=== PATIENT | male | born 1990 | race Two or more races ===

== ENCOUNTER 2020-05-01 18:36 | Emergency (ER) | payer OTHER, SELFPAY ==
--- NOTE | ~2020-05-01 | US_ITS ---
EXAMINATION: US VENOUS ULTRASOUND WITH DOPPLER LOWER EXTREMITY, BILATERAL CLINICAL INFORMATION: Swelling and pain COMPARISON: None TECHNIQUE: Ultrasound of the deep veins is performed from the hip to the calf with compression sonography and color and pulse Doppler assessment. Spectral analysis with color-flow imaging is performed. FINDINGS: RIGHT: There is normal venous compression and respiratory variation and augmented flow. The visualized common femoral vein, superficial femoral vein, profunda femoral vein, popliteal vein, and the trifurcation region shows no evidence of deep venous thrombosis. There is no significant popliteal fossa cyst. Mildly prominent inguinal lymph nodes are present. Normal morphology. LEFT: There is normal venous compression and respiratory variation and augmented flow. The visualized common femoral vein, superficial femoral vein, profunda femoral vein, popliteal vein, and the trifurcation region shows no evidence of deep venous thrombosis. There is no significant popliteal fossa cyst. Mildly prominent inguinal lymph nodes are present. Normal morphology. If the patient's symptoms persist, followup ultrasound in 5 days 7 days might be of value to exclude proximal propagation from a non-visualized calf vein. US/US venous duplex LE BI IMPRESSION: No DVT demonstrated in the bilateral lower extremities. Prominent bilateral inguinal lymph nodes.
--- NOTE | ~2020-05-01 | XR_ITS ---
EXAMINATION: XR CHEST CLINICAL INFORMATION: Bilateral lower extremity swelling COMPARISON: None TECHNIQUE: Frontal view of the chest was obtained. FINDINGS: The lungs are well expanded. There is no focal consolidation, edema, or effusion. No pneumothorax. The cardiomediastinal silhouette is within normal limits. No acute osseous abnormality. XR/XR chest 1V IMPRESSION: Clear lungs.
[2020-05-01 20:24] VITALS: BP 101/50; PULSE 62; RESP 16; TEMP 36.8; O2SAT 98; BMI 30.3
--- NOTE | 2020-05-01 23:09 | ECG_ITS ---
Test Reason : ble swelling Blood Pressure : / mmHG Vent. Rate : 057 BPM Atrial Rate : 057 BPM P-R Int : 160 ms QRS Dur : 082 ms QT Int : 436 ms P-R-T Axes : 014 049 050 degrees QTc Int : 424 ms Sinus bradycardia Nonspecific ST and T wave abnormality Abnormal ECG No previous ECGs available Referred By: Soila Conner Electronically Signed By:SHANELLE ENRIQUEZ MD
--- NOTE | 2020-05-01 23:14 | ED_ITS ---
HPI - General Adult General Chief complaint: Extremity Injury, Lower Stated complaint: leg pain Time Seen by Provider: 05/01/20 23:05 Source: patient Mode of arrival: ambulatory Limitations: no limitations History of Present Illness HPI narrative: 29-year-old male with no significant past medical history, however has not had medical care in approximately 15 years presents with bilateral lower extremity swelling. States that the swelling has been present for the past 2 years, over the past few weeks the pain and swelling has increased, is exacerbated by movement, standing for long periods of time, and cold weather. Does not report any fevers, chills, chest pain or pressure, palpitations, shortness of breath, shortness of breath on exertion, abdominal pain, abdominal distention, dysuria, hematuria, polyuria, polydipsia, polyphasia, changes in vision, or any other concerning symptoms. Onset (ago): year(s) (2) Location: left, right and lower extremity Severity: moderate Severity scale (1-10): 7 Quality: burning and constant Pain Consistency: constant Relieving factors: rest and other (Elevation) Exacerbating factors: movement and other (Standing, cold weather) Associated symptoms: denies other symptoms Treatments prior to arrival: none Related Data Allergies Allergy/AdvReac Type Severity Reaction Status Date / Time No Known Allergies Allergy Verified 05/01/20 20:37 Review of Systems Review of Systems: Constitutional: No Fever, No Chills ENT/Mouth: No Ear Pain, No Hoarseness, No sore throat Eyes: No Eye Pain, No Swelling, No Redness, No Foreign Body Cardiovascular: No Chest Pain, No SOB Respiratory: No Cough, No Dyspnea Gastrointestinal: No Nausea, No Vomiting, No Diarrhea, No abdominal Pain Genitourinary: No Dysuria, No Hematuria Musculoskeletal: positive bilateral lower extremity pain, No Myalgias, No Joint Swelling Skin: Multiple picking wounds lower extremities, No rash Neuro: No Weakness, No Numbness, No Paresthesias, No Loss of Consciousness, No Dizziness, No Headache Psych: No Anxiety/Panic, No Depression Heme/Lymph: no easy bruising, positive bilateral lower extremity edema, no lymphadenopathy Endocrine: No Polyuria, No Polydipsia Yes all other systems are reviewed and are negative [facility] Past Medical History Attestation statement: The following information was validated with the patient. Source: old records reviewed Medical History No known health problems Social History Social History Advance Directives: No Advance Directives Information Provided: No Physical Exam Vital Signs: Vital Signs: Last Vital Signs Temp 98.2 F 05/02/20 00:00 Pulse 61 05/02/20 00:00 Resp 16 05/02/20 00:00 BP 126/73 05/02/20 00:00 Pulse Ox 97 05/02/20 00:00 Body Mass Index 30.3 Appearance: Alert. Oriented X3. No acute distress. Eyes: Pupils equal, round and reactive to light. ENT: Pharynx normal. Neck: Normal inspection. Neck supple. CVS: Normal heart rate and rhythm. Pulses normal. Respiratory: No respiratory distress. Breath sounds normal. Abdomen: Soft and nontender. Skin: Skin warm and dry. Normal skin color. Normal skin turgor. Extremities: Bilateral lower extremity edema, dry skin, multiple picking wounds, no wounds between the toes, no indication of cellulitis or infection. Neuro: No motor deficit. No sensory deficit. Course Course Course Narrative: 29-year-old male presents with 2 years of lower extremity swelling, presents because pain in his lower extremities have increased over the past couple of weeks. He smells like marijuana, and I suspect drug use however he denies IVDA. Based on his poor medical follow through we will order CBC, Chem 7, BNP, tox screen, and COVID test. Lab values are unremarkable with the exception of elevated glucose at 130, positive opioid and marijuana tox screen. Chest x-ray is negative, EKG normal sinus, troponins are negative. Low suspicion for ACS and heart failure at this time. Duplex negative for DVT, shows bilateral lymphadenopathy. Detailed description regarding new onset of diabetes, and lymphadenopathy that patient must follow up with primary care. Patient verbalizes understanding of and agrees to plan care discharge home. Medical Decision Making Differential Diagnosis Differential Diagnosis: DVT, lymphadenopathy, cellulitis, edema, CHF, substance abuse Medical Records Medical records reviewed: Yes I reviewed the patient's medical records. Lab Data Lab results reviewed: Yes I reviewed the patient's lab results. Result diagrams: 05/01/20 23:48 05/01/20 23:47 Labs: Lab Results 05/01/20 05/01/20 05/01/20 Range/Units 23:44 23:47 23:47 WBC (4.8-10.8) X10*3/uL RBC (4.60-5.80) X10*6/uL Hgb (14.0-18.0) g/dl Hct (42-52) % MCV (80-98) fL MCH (27.0-33.0) pg MCHC (31.0-36.0) g/dl RDW (11.0-16.0) % Plt Count (160-400) X10*3/uL MPV (9.4-12.4) fL Immature Gran % (Auto) (0.0-0.4) % Neut % (Auto) (45-73) % Lymph % (Auto) (20-40) % [place] % (Auto) (2-11) % Eos % (Auto) (0-4) % Baso % (Auto) (0-2) % Lymph # (Auto) (1.2-4.9) X10*3/uL [place] # (Auto) (0.1-1.2) X10*3/uL Eos # (Auto) (0.0-0.4) X10*3/uL Baso # (Auto) (0.0-0.2) X10*3/uL Abs Immat Gran (auto) (0.00-0.03) X10*3/uL Absolute Neuts (auto) (2.0-8.3) X10*3/uL Absolute Nucleated RBC (0.0-0.012) X10*3/uL Nucleated RBC % (auto) (0.0-0.2) /100WBC PT (10.8-13.0) SEC INR (0.9-1.1) APTT (24.1-38.0) SEC Sodium 141 (135-145) mmol/L Potassium 3.9 (3.3-5.1) mmol/L Chloride 102 (96-108) mmol/L Carbon Dioxide 31 H (22-29) mmol/L Anion Gap 12 (12-20) BUN 17 H (9-16) mg/dL Creatinine 1.03 (0.5-1.4) mg/dL Estim Creat Clear Calc 131.7 Estimated GFR > 60 POC Glucose 129 H (60-115) mg/dL Random Glucose 115 (60-115) mg/dL Lactic Acid 1.1 (0.5-2.0) mmol/L Calcium 9.1 (8.4-10.2) mg/dL Magnesium 2.3 (1.6-2.6) mg/dL Total Bilirubin 0.3 (0.0-1.0) mg/dL Direct Bilirubin < 0.2 (0.0-0.5) mg/dL AST 19 (5-37) U/L ALT 21 (0-40) U/L Alkaline Phosphatase 87 (39-117) U/L Troponin I High Sens (<3.5-35.0) ng/L B-Natriuretic Peptide (<100) pg/mL Total Protein 8.0 (6.5-8.0) g/dL Albumin 4.5 (3.5-5.0) g/dL Lipase 96 H (8-78) U/L Urine Color Urine Appearance Urine pH (5.0-8.0) Ur Specific [place] (1.005-1.025) Urine Protein (NEG-TRACE) MG/DL Urine Glucose (UA) (NEG) MG/DL Urine Ketones (NEG) MG/DL Urine Blood (NEG) Urine Nitrite (NEG) Ur Leukocyte Esterase (NEG) Urine Opiates Screen (Not Detect) Ur Barbiturates Screen (Not Detect) Ur Phencyclidine Scrn (Not Detect) Ur Amphetamines Screen (Not Detect) U Benzodiazepines Scrn (Not Detect) Urine Cocaine Screen (Not Detect) U Marijuana (THC) Screen (Not Detect) Coronavirus (PCR) (Negative) Influenza Type A (PCR) (Negative) Influenza Type B (PCR) (Negative) RSV RNA Qual (PCR) (Negative) 05/01/20 05/01/20 05/01/20 Range/Units 23:47 23:47 23:47 WBC (4.8-10.8) X10*3/uL RBC (4.60-5.80) X10*6/uL Hgb (14.0-18.0) g/dl Hct (42-52) % MCV (80-98) fL MCH (27.0-33.0) pg MCHC (31.0-36.0) g/dl RDW (11.0-16.0) % Plt Count (160-400) X10*3/uL MPV (9.4-12.4) fL Immature Gran % (Auto) (0.0-0.4) % Neut % (Auto) (45-73) % Lymph % (Auto) (20-40) % [place] % (Auto) (2-11) % Eos % (Auto) (0-4) % Baso % (Auto) (0-2) % Lymph # (Auto) (1.2-4.9) X10*3/uL [place] # (Auto) (0.1-1.2) X10*3/uL Eos # (Auto) (0.0-0.4) X10*3/uL Baso # (Auto) (0.0-0.2) X10*3/uL Abs Immat Gran (auto) (0.00-0.03) X10*3/uL Absolute Neuts (auto) (2.0-8.3) X10*3/uL Absolute Nucleated RBC (0.0-0.012) X10*3/uL Nucleated RBC % (auto) (0.0-0.2) /100WBC PT (10.8-13.0) SEC INR (0.9-1.1) APTT (24.1-38.0) SEC Sodium (135-145) mmol/L Potassium (3.3-5.1) mmol/L Chloride (96-108) mmol/L Carbon Dioxide (22-29) mmol/L Anion Gap (12-20) BUN (9-16) mg/dL Creatinine (0.5-1.4) mg/dL Estim Creat Clear Calc Estimated GFR POC Glucose (60-115) mg/dL Random Glucose (60-115) mg/dL Lactic Acid (0.5-2.0) mmol/L Calcium (8.4-10.2) mg/dL Magnesium (1.6-2.6) mg/dL Total Bilirubin (0.0-1.0) mg/dL Direct Bilirubin (0.0-0.5) mg/dL AST (5-37) U/L ALT (0-40) U/L Alkaline Phosphatase (39-117) U/L Troponin I High Sens < 3.5 (<3.5-35.0) ng/L B-Natriuretic Peptide 16 (<100) pg/mL Total Protein (6.5-8.0) g/dL Albumin (3.5-5.0) g/dL Lipase (8-78) U/L Urine Color Urine Appearance Urine pH (5.0-8.0) Ur Specific [place] (1.005-1.025) Urine Protein (NEG-TRACE) MG/DL Urine Glucose (UA) (NEG) MG/DL Urine Ketones (NEG) MG/DL Urine Blood (NEG) Urine Nitrite (NEG) Ur Leukocyte Esterase (NEG) Urine Opiates Screen (Not Detect) Ur Barbiturates Screen (Not Detect) Ur Phencyclidine Scrn (Not Detect) Ur Amphetamines Screen (Not Detect) U Benzodiazepines Scrn (Not Detect) Urine Cocaine Screen (Not Detect) U Marijuana (THC) Screen (Not Detect) Coronavirus (PCR) NEGATIVE (Negative) Influenza Type A (PCR) NEGATIVE (Negative) Influenza Type B (PCR) NEGATIVE (Negative) RSV RNA Qual (PCR) NEGATIVE (Negative) 05/01/20 05/01/20 05/02/20 Range/Units 23:48 23:48 00:28 WBC 8.7 (4.8-10.8) X10*3/uL RBC 4.43 L (4.60-5.80) X10*6/uL Hgb 13.7 L (14.0-18.0) g/dl Hct 42.3 (42-52) % MCV 95.5 (80-98) fL MCH 30.9 (27.0-33.0) pg MCHC 32.4 (31.0-36.0) g/dl RDW 13.0 (11.0-16.0) % Plt Count 250 (160-400) X10*3/uL MPV 9.3 L (9.4-12.4) fL Immature Gran % (Auto) 0.2 (0.0-0.4) % Neut % (Auto) 46.3 (45-73) % Lymph % (Auto) 44.3 H (20-40) % [place] % (Auto) 7.3 (2-11) % Eos % (Auto) 1.7 (0-4) % Baso % (Auto) 0.2 (0-2) % Lymph # (Auto) 3.9 (1.2-4.9) X10*3/uL [place] # (Auto) 0.6 (0.1-1.2) X10*3/uL Eos # (Auto) 0.2 (0.0-0.4) X10*3/uL Baso # (Auto) 0.0 (0.0-0.2) X10*3/uL Abs Immat Gran (auto) 0.02 (0.00-0.03) X10*3/uL Absolute Neuts (auto) 4.0 (2.0-8.3) X10*3/uL Absolute Nucleated RBC 0.000 (0.0-0.012) X10*3/uL Nucleated RBC % (auto) 0.0 (0.0-0.2) /100WBC PT 11.9 (10.8-13.0) SEC INR 1.0 (0.9-1.1) APTT 45.1 H (24.1-38.0) SEC Sodium (135-145) mmol/L Potassium (3.3-5.1) mmol/L Chloride (96-108) mmol/L Carbon Dioxide (22-29) mmol/L Anion Gap (12-20) BUN (9-16) mg/dL Creatinine (0.5-1.4) mg/dL Estim Creat Clear Calc Estimated GFR POC Glucose (60-115) mg/dL Random Glucose (60-115) mg/dL Lactic Acid (0.5-2.0) mmol/L Calcium (8.4-10.2) mg/dL Magnesium (1.6-2.6) mg/dL Total Bilirubin (0.0-1.0) mg/dL Direct Bilirubin (0.0-0.5) mg/dL AST (5-37) U/L ALT (0-40) U/L Alkaline Phosphatase (39-117) U/L Troponin I High Sens (<3.5-35.0) ng/L B-Natriuretic Peptide (<100) pg/mL Total Protein (6.5-8.0) g/dL Albumin (3.5-5.0) g/dL Lipase (8-78) U/L Urine Color YELLOW Urine Appearance CLEAR Urine pH 6.0 (5.0-8.0) Ur Specific [place] >= 1.030 H (1.005-1.025) Urine Protein NEG (NEG-TRACE) MG/DL Urine Glucose (UA) NEG (NEG) MG/DL Urine Ketones NEG (NEG) MG/DL Urine Blood NEG (NEG) Urine Nitrite NEG (NEG) Ur Leukocyte Esterase NEG (NEG) Urine Opiates Screen (Not Detect) Ur Barbiturates Screen (Not Detect) Ur Phencyclidine Scrn (Not Detect) Ur Amphetamines Screen (Not Detect) U Benzodiazepines Scrn (Not Detect) Urine Cocaine Screen (Not Detect) U Marijuana (THC) Screen (Not Detect) Coronavirus (PCR) (Negative) Influenza Type A (PCR) (Negative) Influenza Type B (PCR) (Negative) RSV RNA Qual (PCR) (Negative) 05/02/20 Range/Units 00:28 WBC (4.8-10.8) X10*3/uL RBC (4.60-5.80) X10*6/uL Hgb (14.0-18.0) g/dl Hct (42-52) % MCV (80-98) fL MCH (27.0-33.0) pg MCHC (31.0-36.0) g/dl RDW (11.0-16.0) % Plt Count (160-400) X10*3/uL MPV (9.4-12.4) fL Immature Gran % (Auto) (0.0-0.4) % Neut % (Auto) (45-73) % Lymph % (Auto) (20-40) % [place] % (Auto) (2-11) % Eos % (Auto) (0-4) % Baso % (Auto) (0-2) % Lymph # (Auto) (1.2-4.9) X10*3/uL [place] # (Auto) (0.1-1.2) X10*3/uL Eos # (Auto) (0.0-0.4) X10*3/uL Baso # (Auto) (0.0-0.2) X10*3/uL Abs Immat Gran (auto) (0.00-0.03) X10*3/uL Absolute Neuts (auto) (2.0-8.3) X10*3/uL Absolute Nucleated RBC (0.0-0.012) X10*3/uL Nucleated RBC % (auto) (0.0-0.2) /100WBC PT (10.8-13.0) SEC INR (0.9-1.1) APTT (24.1-38.0) SEC Sodium (135-145) mmol/L Potassium (3.3-5.1) mmol/L Chloride (96-108) mmol/L Carbon Dioxide (22-29) mmol/L Anion Gap (12-20) BUN (9-16) mg/dL Creatinine (0.5-1.4) mg/dL Estim Creat Clear Calc Estimated GFR POC Glucose (60-115) mg/dL Random Glucose (60-115) mg/dL Lactic Acid (0.5-2.0) mmol/L Calcium (8.4-10.2) mg/dL Magnesium (1.6-2.6) mg/dL Total Bilirubin (0.0-1.0) mg/dL Direct Bilirubin (0.0-0.5) mg/dL AST (5-37) U/L ALT (0-40) U/L Alkaline Phosphatase (39-117) U/L Troponin I High Sens (<3.5-35.0) ng/L B-Natriuretic Peptide (<100) pg/mL Total Protein (6.5-8.0) g/dL Albumin (3.5-5.0) g/dL Lipase (8-78) U/L Urine Color Urine Appearance Urine pH (5.0-8.0) Ur Specific [place] (1.005-1.025) Urine Protein (NEG-TRACE) MG/DL Urine Glucose (UA) (NEG) MG/DL Urine Ketones (NEG) MG/DL Urine Blood (NEG) Urine Nitrite (NEG) Ur Leukocyte Esterase (NEG) Urine Opiates Screen POSITIVE H (Not Detect) Ur Barbiturates Screen Not Detected (Not Detect) Ur Phencyclidine Scrn Not Detected (Not Detect) Ur Amphetamines Screen Not Detected (Not Detect) U Benzodiazepines Scrn Not Detected (Not Detect) Urine Cocaine Screen Not Detected (Not Detect) U Marijuana (THC) Screen POSITIVE H (Not Detect) Coronavirus (PCR) (Negative) Influenza Type A (PCR) (Negative) Influenza Type B (PCR) (Negative) RSV RNA Qual (PCR) (Negative) Imaging Data Bilateral venous duplex: Attestation: I personally reviewed and interpreted this imaging study as follows: Radiologist's impression: EXAMINATION: US VENOUS ULTRASOUND WITH DOPPLER LOWER EXTREMITY, BILATERAL CLINICAL INFORMATION: Swelling and pain COMPARISON: None TECHNIQUE: Ultrasound of the deep veins is performed from the hip to the calf with compression sonography and color and pulse Doppler assessment. Spectral analysis with color-flow imaging is performed. FINDINGS: RIGHT: There is normal venous compression and respiratory variation and augmented flow. The visualized common femoral vein, superficial femoral vein, profunda femoral vein, popliteal vein, and the trifurcation region shows no evidence of deep venous thrombosis. There is no significant popliteal fossa cyst. Mildly prominent inguinal lymph nodes are present. Normal morphology. LEFT: There is normal venous compression and respiratory variation and augmented flow. The visualized common femoral vein, superficial femoral vein, profunda femoral vein, popliteal vein, and the trifurcation region shows no evidence of deep venous thrombosis. There is no significant popliteal fossa cyst. Mildly prominent inguinal lymph nodes are present. Normal morphology. If the patient's symptoms persist, followup ultrasound in 5 days 7 days might be of value to exclude proximal propagation from a non-visualized calf vein. US/US venous duplex LE BI IMPRESSION: No DVT demonstrated in the bilateral lower extremities. Prominent bilateral inguinal lymph nodes. Chest x-ray: Attestation: I personally reviewed and interpreted this imaging study as follows: Radiologist's impression: EXAMINATION: XR CHEST CLINICAL INFORMATION: Bilateral lower extremity swelling COMPARISON: None TECHNIQUE: Frontal view of the chest was obtained. FINDINGS: The lungs are well expanded. There is no focal consolidation, edema, or effusion. No pneumothorax. The cardiomediastinal silhouette is within normal limits. No acute osseous abnormality. XR/XR chest 1V IMPRESSION: Clear lungs. ECG Data Attestation: I personally reviewed and interpreted this ECG as follows: Interpretation: Vent. rate 61 BPM DE interval 180 ms QRS duration 110 ms QT/QTc 426/428 ms P-R-T axes 53 40 42 Normal sinus rhythm Nonspecific T wave abn ormality Abnormal ECG When compared with ECG of 01-MAY-2020 23:31, ST no longer depressed in Anterior leads Discharge Plan Discharge Clinical Impression: Localized swelling of both lower extremities, New onset type 2 diabetes mellitus, Lymphadenopathy Patient Disposition: Home, Self-Care Instructions: Type 2 Diabetes in Adults: New Diagnosis (ED), Diabetic Foot Ulcers (ED), Diabetes and Your Skin (ED), Diabetes and Your Mouth (ED), Diabetes and Exercise (ED), Lymphadenopathy (ED) Additional Instructions: You were evaluated for bilateral lower extremity swelling. Venous duplex is negative for blood clots. Lab values are unremarkable with the exception of your blood sugar. Your blood sugar is 130. Clinical diagnosis of diabetes is any blood sugar over 126. Please follow-up with a primary care physician. Thank you for choosing this emergency department for evaluation. Please foll ow-up with primary care physician as needed. Return to the emergency department for any new, concerning, or worsening symptoms. Interventions: ED Discharge Assessment Last Done: 05/02/20 01:10 Discharge Date/Time: 05/02/20 01:12
--- NOTE | 2020-05-01 23:20 | PC.NURSE ---
CXR at bedside.
--- NOTE | 2020-05-01 23:26 | PC.NURSE ---
landscape technician at bedside for EKG, labs and POC.
[2020-05-01 23:54] LABS: Glucose, Whole Blood 129 mg/dL (60-115)
[2020-05-01 23:56] LABS: MANUAL DIFF FLAG NO
[2020-05-01 23:57] LABS: Basophils Percent Auto 0.2 % (0-2); Eosinophils Absolute Auto 0.2 X10*3/uL (0.0-0.4); Eosinophils Percent Auto 1.7 % (0-4); Hematocrit 42.3 % (42-52); Hemoglobin 13.7 g/dl (14.0-18.0); Imm Gran Abs Auto 0.02 X10*3/uL (0.00-0.03); Imm Gran Pct Auto 0.2 % (0.0-0.4); Lymphocytes Absolute Auto 3.9 X10*3/uL (1.2-4.9); Lymphocytes Percent Auto 44.3 % (20-40); Mean Corpuscular HGB Conc 32.4 g/dl (31.0-36.0); Mean Corpuscular Hemoglobin 30.9 pg (27.0-33.0); Mean Corpuscular Volume 95.5 fL (80-98); Mean Platelet Volume 9.3 fL (9.4-12.4); Monocytes Absolute Auto 0.6 X10*3/uL (0.1-1.2); Monocytes Percent Auto 7.3 % (2-11); Neutrophils Percent Auto 46.3 % (45-73); Platelet Count 250 X10*3/uL (160-400); Red Blood Count 4.43 X10*6/uL (4.60-5.80); White Blood Count 8.7 X10*3/uL (4.8-10.8)
[2020-05-02] VITALS: BP 126/73; PULSE 61; RESP 16; TEMP 36.8; O2SAT 97
[2020-05-02 00:02] LABS: Prothrombin Time 11.9 SEC (10.8-13.0)
[2020-05-02 00:05] LABS: Partial Thromboplastin Time 45.1 SEC (24.1-38.0)
[2020-05-02 00:19] LABS: Lactic Acid 1.1 mmol/L (0.5-2.0)
[2020-05-02 00:27] LABS: B Type Natriuretic Peptide 16 pg/mL (<100)
[2020-05-02 00:28] LABS: Alanine Aminotransferase 21 U/L (0-40); Albumin Level 4.5 g/dL (3.5-5.0); Alkaline Phosphatase 87 U/L (39-117); Anion Gap 12 (12-20); Aspartate Amino Transferase 19 U/L (5-37); Bilirubin Direct < 0.2 mg/dL (0.0-0.5); Bilirubin Total 0.3 mg/dL (0.0-1.0); Blood Urea Nitrogen 17 mg/dL (9-16); Calcium 9.1 mg/dL (8.4-10.2); Carbon Dioxide 31 mmol/L (22-29); Chloride 102 mmol/L (96-108); Creatinine Clr Calc Pharmacy 131.7; Estimated Glomerular Filt Rate > 60; Glucose Random 115 mg/dL (60-115); Magnesium 2.3 mg/dL (1.6-2.6); Potassium 3.9 mmol/L (3.3-5.1); Sodium 141 mmol/L (135-145); Troponin-I High Sensitivity < 3.5 ng/L (<3.5-35.0)
--- NOTE | 2020-05-02 00:31 | PC.NURSE ---
U/S at bedside. Urine obtained and sent.
[2020-05-02 00:33] LABS: Glucose Urine UA NEG (NEG); Leukocyte Esterase Urine NEG (NEG); Nitrite Urine NEG (NEG); Specific Gravity - Urine >= 1.030 (1.005-1.025); Urine Blood NEG (NEG); Urine Ketones NEG (NEG); Urine Protein NEG (NEG-TRACE)
[2020-05-02 00:35] LABS: Appearance Urine CLEAR; Color Urine YELLOW
[2020-05-02 00:41] LABS: Lipase 96 U/L (8-78)
[2020-05-02 00:50] LABS: Influenza A PCR NEGATIVE (Negative); Influenza B PCR NEGATIVE (Negative); Resp Syncy Virus RNA Qual PCR NEGATIVE (Negative); SARS COV2 PCR INHOUSE NEGATIVE (Negative)
[2020-05-02 01:03] LABS: Amphetamine Screen Urine Not Detected (Not Detect); Barbiturates, Urine Not Detected (Not Detect); Benzodiazepines Screen Urine Not Detected (Not Detect); Cannabinoid Screen Urine POSITIVE (Not Detect); Cocaine Screen Urine Not Detected (Not Detect); Opiate Screen Urine POSITIVE (Not Detect); Phencyclidine Screen Urine Not Detected (Not Detect)
== END 2020-05-02 01:12 | disposition home or self-care (01) ==
PROVIDERS: Nurse Practitioner Family; Emergency Provider Internal Medicine
DX: R60.0 Localized edema (principal); R06.02 Shortness of breath; E11.9 Type 2 diabetes mellitus without complications; R59.0 Localized enlarged lymph nodes; Z20.822 Contact with and (suspected) exposure to COVID-19; Z79.899 Other long term (current) drug therapy
CPT/HCPCS: 0241U; 36415; 71045; 80048; 80076; 80307; 81003; 82947; 83605; 83690; 83735; 83880; 84484; 85025; 85610; 85730; 87040; 93005; 93970; 99283; 99284

== ENCOUNTER 2021-02-15 16:45 | Emergency (ER) | payer OTHER, SELFPAY ==
--- NOTE | ~2021-02-15 | XR_ITS ---
EXAMINATION: XR CHEST CLINICAL INFORMATION: Edema COMPARISON: 05/01/2020 TECHNIQUE: 2 views of the chest were obtained. FINDINGS: The lungs are well expanded. There is no focal consolidation, edema, or effusion. No pneumothorax. The cardiomediastinal silhouette is within normal limits. No acute osseous abnormality. XR/XR chest 2V IMPRESSION: Clear lungs.
[2021-02-15 17:32] VITALS: BP 112/56; PULSE 86; RESP 18; TEMP 36.7; O2SAT 98; BMI 24.3
--- NOTE | 2021-02-15 18:34 | ED.GENADULT ---
HPI - General Adult General Chief complaint: General Medical Stated complaint: legs are swollen Source: patient Mode of arrival: ambulatory Limitations: no limitations History of Present Illness HPI narrative: 30-year-old male presents with chronic bilateral lower extremity swelling. States that he has 2 open wounds to his lower extremities and complains of pain particularly at night. Onset (ago): year(s) Location: left, right and lower extremity Radiation: non-radiation Severity: moderate Severity scale (1-10): 7 Quality: aching Pain Consistency: intermittent Relieving factors: other (Elevation) Exacerbating factors: movement Associated symptoms: denies other symptoms Treatments prior to arrival: none Related Data Previous Rx's Medication Instructions Recorded doxycycline monohydrate 100 mg 100 mg PO BID 10 Days #20 cap 02/15/21 capsule furosemide 20 mg tablet (Lasix) 20 mg PO DAILY #30 tab 02/15/21 Allergies Allergy/AdvReac Type Severity Reaction Status Date / Time No Known Allergies Allergy Verified 02/15/21 17:32 Review of Systems Review of Systems: Constitutional: No Fever, No Chills ENT/Mouth: No Ear Pain, No Hoarseness, No sore throat Eyes: No Eye Pain, No Swelling, No Redness, No Foreign Body Cardiovascular: Positive bilateral lower extremity edema, No Chest Pain, No SOB Respiratory: No Cough, No Dyspnea Gastrointestinal: No Nausea, No Vomiting, No Diarrhea, No abdominal Pain Genitourinary: No Dysuria, No Hematuria Musculoskeletal: positive bilateral leg pain, No Myalgias, No Joint Swelling Skin: Positive open wounds bilateral lower extremities, No Skin lacerations, No rash Neuro: No Weakness, No Numbness, No Paresthesias, No Loss of Consciousness, No Dizziness, No Headache Psych: No Anxiety/Panic, No Depression Heme/Lymph: no easy bruising, no Lymphadenopathy Endocrine: No Polyuria, No Polydipsia Yes all other systems are reviewed and are negative PMF Past Medical History Source: old records reviewed Medical History No known health problems Social History Social History Advance Directives: No Advance Directives Information Provided: Yes Physical Exam Vital Signs: Vital Signs: Last Vital Signs Temp 99.2 F 02/15/21 18:53 Pulse 74 02/15/21 19:47 Resp 16 02/15/21 18:53 BP 131/89 02/15/21 19:47 Pulse Ox 99 02/15/21 18:53 BMI result Body Mass Index 24.3 ROS: Numbness, Tingling, Swelling, Loss of mobility, Skin color changes, Calf swelling or tenderness, Inability to bear weight, redness, laceration, prior injury. Ankle exam: Skin intact. No STS. No Medial TEND. No Lateral TEND. No marion deformity. No PROX fibular tenderness. No 5th MTT. 2+DPs. CR< 2 sec. Neg anterior draw. Bennett test NEG. No LAC. Moves toes well. No major lig instability. Assessment: Patient able to bear weight on affected ankle well. Pt c likely sprain, but getting XR to r/o fx. Not c/w base 5th MT fx; No achilles rupture. Not a [place] fx. No evidence of vascular injury. If imaging negative for fracture will provide ramsey wrap, air cast and crutches for support. Will educate patient on proper crutch walking. Advised to rest, ice and elevate ankle, take motrin for pain. Discussed that sprains take time to heal, however if sx change or worsen - follow up with PCP or ortho for follow-up. Return precautions advised. Patient understands and agrees with plan. Course Course Course Narrative: 30-year-old male presents with chronic bilateral lower extremity edema with wounds bilaterally. Wounds been in present for several weeks, have not been healing, patient stated that every time he stands up that the wounds drain. Not describe any fevers or chills, states that he cannot get into a primary care physician. He did have an appointment on the however the primary care that he was established with left his practice. Will order labs at this time. While DVT score is 0. EKG is normal sinus. Chest x-ray is normal does not show any pulmonary congestion or indication of CHF. BNP is normal, as well as other labs. Will give doxycycline for cellulitis around the chronic venous stasis wounds. Will refer patient to Wound Clinic. I did give him the phone number to establish primary care physician at [facility]. Patient verbalized understanding of and agrees to plan of care discharge home. Medical Decision Making Lab Data Result diagrams: 02/15/21 18:29 02/15/21 18:29 Labs: Lab Results 02/15/21 02/15/21 02/15/21 Range/Units 18:29 18:29 18:57 WBC 9.5 (4.8-10.8) X10*3/uL RBC 4.14 L (4.60-5.80) X10*6/uL Hgb 13.0 L (14.0-18.0) g/dl Hct 38.5 L (42.0-52.0) % MCV 93.0 (80.0-98.0) fL MCH 31.4 (27.0-33.0) pg MCHC 33.8 (31.0-36.0) g/dl RDW 12.6 (11.0-16.0) % Plt Count 265 (160-400) X10*3/uL MPV 9.0 L (9.4-12.4) fL Immature Gran % (Auto) 0.1 (0.0-0.4) % Neut % (Auto) 49.4 (45-73) % Lymph % (Auto) 42.2 H (20-40) % Christian % (Auto) 6.9 (2-11) % Eos % (Auto) 1.3 (0-4) % Baso % (Auto) 0.1 (0-2) % Lymph # (Auto) 4.0 (1.2-4.9) X10*3/uL Christian # (Auto) 0.7 (0.1-1.2) X10*3/uL Eos # (Auto) 0.1 (0.0-0.4) X10*3/uL Baso # (Auto) 0.0 (0.0-0.2) X10*3/uL Abs Immat Gran (auto) 0.01 (0.00-0.03) X10*3/uL Absolute Neuts (auto) 4.7 (2.0-8.3) x10*3/uL Absolute Nucleated RBC 0.000 (0.0-0.012) X10*3/uL Nucleated RBC % (auto) 0.0 (0.0-0.2) /100WBC Sodium 143 (135-145) mmol/L Potassium 3.4 (3.3-5.1) mmol/L Chloride 104 (96-108) mmol/L Carbon Dioxide 29 (22-29) mmol/L Anion Gap 13 (12-20) BUN 14 (9-16) mg/dL Creatinine 1.08 (0.5-1.4) mg/dL Estim Creat Clear Calc 114.1 Estimated GFR > 60 Random Glucose 115 (60-115) mg/dL Calcium 9.3 (8.4-10.2) mg/dL B-Natriuretic Peptide 11 (<100) pg/mL Discharge Plan Discharge Clinical Impression: Peripheral vascular disease, Wounds, multiple Edema Qualifiers: Edema type: generalized Qualified Code(s): R60.1 - Generalized edema Patient Disposition: Home, Self-Care Instructions: Peripheral Vascular Disease (ED), Leg Edema (ED), Chronic Wounds (ED) Additional Instructions: You were evaluated for bilateral lower extremity edema that has been occurring for greater than 1 year. Please take doxycycline as directed for the next 10 days. Do not expose yourself to [place] or tanning while taking doxycycline to prevent adverse reaction Please take Lasix 20 mg as needed in the morning for bilateral lower extremity edema. Please follow-up with wound clinic. Please try to find a primary care physician. Please call [phone] and request primary services. Thank you for choosing this emergency department for evaluation. Please follow-up with primary care physician as needed. Return to the emergency department for any new, concerning, or worsening symptoms. Prescriptions: New doxycycline monohydrate 100 mg capsule 100 mg PO BID 10 Days Qty: 20 RF: 0 furosemide [Lasix] 20 mg tablet 20 mg PO DAILY Qty: 30 RF: 0 Referrals: Wound Care [facility] [Outside] - 2 days (Chronic venous stasis ulcers) Interventions: ED Discharge Assessment Last Done: 02/15/21 19:53 Discharge Date/Time: 02/15/21 20:01
--- NOTE | 2021-02-15 18:35 | ECG_ITS ---
Test Reason : GEN-MED/EDEMA Blood Pressure : / mmHG Vent. Rate : 072 BPM Atrial Rate : 072 BPM P-R Int : 160 ms QRS Dur : 108 ms QT Int : 392 ms P-R-T Axes : 012 012 022 degrees QTc Int : 429 ms Normal sinus rhythm Normal ECG When compared with ECG of 01-MAY-2020 23:31, ST no longer depressed in Inferior leads ST no longer depressed in Anterior leads Referred By: Soila Conner Electronically Signed By:Clemente Young
[2021-02-15 18:37] LABS: MANUAL DIFF FLAG NO
[2021-02-15 18:40] LABS: Basophils Percent Auto 0.1 % (0-2); Eosinophils Absolute Auto 0.1 X10*3/uL (0.0-0.4); Eosinophils Percent Auto 1.3 % (0-4); Hematocrit 38.5 % (42.0-52.0); Imm Gran Abs Auto 0.01 X10*3/uL (0.00-0.03); Imm Gran Pct Auto 0.1 % (0.0-0.4); Lymphocytes Percent Auto 42.2 % (20-40); Mean Corpuscular HGB Conc 33.8 g/dl (31.0-36.0); Mean Corpuscular Hemoglobin 31.4 pg (27.0-33.0); Monocytes Absolute Auto 0.7 X10*3/uL (0.1-1.2); Monocytes Percent Auto 6.9 % (2-11); Neutrophils Absolute Auto 4.7 x10*3/uL (2.0-8.3); Neutrophils Percent Auto 49.4 % (45-73); Platelet Count 265 X10*3/uL (160-400); Red Blood Count 4.14 X10*6/uL (4.60-5.80); Red Cell Distribution Width 12.6 % (11.0-16.0); White Blood Count 9.5 X10*3/uL (4.8-10.8)
[2021-02-15 18:50] LABS: Anion Gap 13 (12-20); Blood Urea Nitrogen 14 mg/dL (9-16); Calcium 9.3 mg/dL (8.4-10.2); Carbon Dioxide 29 mmol/L (22-29); Chloride 104 mmol/L (96-108); Creatinine Clr Calc Pharmacy 114.1; Estimated Glomerular Filt Rate > 60; Glucose Random 115 mg/dL (60-115); Potassium 3.4 mmol/L (3.3-5.1); Sodium 143 mmol/L (135-145)
[2021-02-15 18:53] VITALS: BP 116/66; PULSE 70; RESP 16; TEMP 37.3; O2SAT 99
[2021-02-15 19:21] LABS: B Type Natriuretic Peptide 11 pg/mL (<100)
[2021-02-15] MEDS: Furosemide 40 MG TABLET PO (19:45)
[2021-02-15 19:47] VITALS: BP 131/89; PULSE 74
== END 2021-02-15 20:01 | disposition home or self-care (01) ==
PROVIDERS: Nurse Practitioner Family; Emergency Provider Internal Medicine; PCP Internal Medicine
DX: R60.1 Generalized edema (principal); I73.9 Peripheral vascular disease, unspecified; S81.802A Unspecified open wound, left lower leg, initial encounter; S81.801A Unspecified open wound, right lower leg, initial encounter; X58.XXXA Exposure to other specified factors, initial encounter; Y93.9 Activity, unspecified; Y92.9 Unspecified place or not applicable; Y99.9 Unspecified external cause status
CPT/HCPCS: 36415; 71046; 80048; 83880; 85025; 93005; 99283

== ENCOUNTER 2022-06-04 12:08 | Emergency (ER) | payer OTHER, SELFPAY ==
--- NOTE | ~2022-06-04 | US_ITS ---
EXAMINATION: US VENOUS ULTRASOUND WITH DOPPLER LOWER EXTREMITY, BILATERAL CLINICAL INFORMATION: Bilateral leg swelling. COMPARISON: None available. TECHNIQUE: Ultrasound of the deep veins is performed from the hip to the calf with compression sonography and color and pulse Doppler assessment. Spectral analysis with color-flow imaging is performed. FINDINGS: RIGHT: There is normal venous compression and respiratory variation and augmented flow. The visualized common femoral vein, superficial femoral vein, profunda femoral vein, popliteal vein, and the trifurcation region shows no evidence of deep venous thrombosis. There is no significant popliteal fossa cyst. LEFT: There is normal venous compression and respiratory variation and augmented flow. The visualized common femoral vein, superficial femoral vein, profunda femoral vein, popliteal vein, and the trifurcation region shows no evidence of deep venous thrombosis. There is no significant popliteal fossa cyst. Incidentally visualized bilateral inguinal nodes measuring 1.2 cm or less in short axis and demonstrating normal fatty [place], possibly reactive. US/US venous duplex LE BI IMPRESSION: No DVT demonstrated in the lower extremities, bilaterally.
--- NOTE | ~2022-06-04 | US_ITS ---
EXAMINATION: Ultrasound arterial duplex lower extremity bilateral INDICATION: Leg darkening COMPARISON: No similar prior imaging available for comparison at this contusion. TECHNIQUE: Grayscale, color and spectral Doppler imaging was obtained of the deep arterial system of the right and left lower extremities. FINDINGS: Patent deep arterial systems of both lower extremities. Abnormal monophasic waveforms are noted throughout the majority of the right and left lower extremity suggesting inflow disease. No focally elevated velocities to suggest areas of hemodynamically significant stenosis. Collateral vessels are noted within the right and left lower extremity. US/US arterial duplex LE BI IMPRESSION: 1. Patent deep arterial systems of both lower extremities. 2. Monophasic waveforms are noted throughout the majority of both lower extremities suggesting inflow disease. Further evaluation can be obtained with CTA runoff if clinically indicated.
[2022-06-04 12:39] VITALS: BP 121/71; PULSE 75; RESP 16; TEMP 36.8; O2SAT 100; BMI 27.7
--- NOTE | 2022-06-04 12:48 | ED.GENADULT ---
HPI - General Adult General Chief complaint: Extremity Problem <LOYD Valente - Last Filed: 06/17/22 12:51> Stated complaint: both legs turning black <LOYD Valente - Last Filed: 06/17/22 12:51> Time Seen by Provider: 06/04/22 14:39 <LOYD Valente - Last Filed: 06/17/22 12:51> Source: patient <Enrique Rene MD - Last Filed: 06/04/22 16:43> Mode of arrival: ambulatory <Enrique Rene MD - Last Filed: 06/04/22 16:43> Limitations: no limitations <Enrique Rene MD - Last Filed: 06/04/22 16:43> History of Present Illness HPI narrative: 32-year-old male with no major medical problems presents with bilateral lower extremity edema. Symptoms have been going on for approximately 1 year. He has been on Lasix in the past which did help. Patient notes the symptoms are worse towards the end of the day. 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 Denies any fevers or chills. Denies any chest pain or shortness of breath. He does have intermittent pain. The pain is [id number] in nature. Does not radiate. Localized lower extremities. He denies any redness or swelling. Notes some skin discoloration which is chronic in nature. Denies any orthopnea, PND, CHF. Patient does admit intravenous drug abuse. <Enrique Rene MD - Last Filed: 06/04/22 16:43> Related Data Home medications: Previous Rx's Medication Instructions Recorded furosemide 20 mg tablet (Lasix) 20 mg PO DAILY #30 tabs 02/15/21 furosemide 20 mg tablet 20 mg PO DAILY #20 tabs 06/04/22 <LOYD Valente - Last Filed: 06/17/22 12:51> Allergies/adverse reactions: Allergies Allergy/AdvReac Type Severity Reaction Status Date / Time No Known Allergies Allergy Unverified 08/16/21 10:10 [No Known Allergies*] <LOYD Valente - Last Filed: 06/17/22 12:51> [facility] Past Medical History Medical History: Medical History No known health problems <LOYD Valente - Last Filed: 06/17/22 12:51> Social History Social History: Social History Advance Directives: No Advance Directives Information Provided: Yes <LOYD Valente - Last Filed: 06/17/22 12:51> Physical Exam ED Vital Signs: Vital Signs - 24 hr 06/04/22 12:39 06/04/22 14:56 Temperature 98.3 F 97.7 F Pulse Rate 75 62 Respiratory Rate 16 15 Blood Pressure 121/71 115/73 Pulse Oximetry 100 100 Oxygen Delivery Method Room Air Room Air BMI result Body Mass Index 27.7 <LOYD Valente - Last Filed: 06/17/22 12:51> Vital Signs - 24 hr 06/04/22 12:39 06/04/22 14:56 Temperature 98.3 F 97.7 F Pulse Rate 75 62 Respiratory Rate 16 15 Blood Pressure 121/71 115/73 Pulse Oximetry 100 100 Oxygen Delivery Method Room Air Room Air BMI result Body Mass Index 27.7 <Enrique Rene MD - Last Filed: 06/04/22 16:43> GEN: Well developed, no acute distress, alert, oriented HEENT: Normocephalic, atraumatic, normal external ears, nose appears normal, no oropharyngeal edema or exudates Eyes: Normal to appearance Neck: Supple, no lymphadenopathy Respiratory: Talks in complete sentences, no respiratory distress, clear to auscultation bilaterally Cardiovascular: Regular rate and rhythm, no murmurs rubs or gallops Abdomen: Soft, nontender, nondistended, no guarding, no rebound Back: No CVA tenderness Extremities: No clubbing cyanosis 2+ chronic pitting edema with chronic skin changes, no evidence cellulitis Neurologic: No focal neurologic deficits, cranial nerves 2-12 intact, strength is 5/5 bilaterally, gait normal Skin: No rash <Enrique Rene MD - Last Filed: 06/04/22 16:43> Course Course Course Narrative: RME: 32-year-old male presents to the ED for 1 year of bilateral lower extremity swelling darkening of skin for 1 year. Patient is a smoker. Patient denies any calf pain, shortness of breath or chest pain. Patient denies being diabetic. Physical exam motor vascular nerve exam intact. Skin on both legs just darkening venous stasis changes. Negative for blackness. Negative for black gangrene on toes. Labs, BNP, ultrasound ordered. Not suspecting emergent arterial occlusion but patient may be developing peripheral vascular disease. Patient is a smoker. <LOYD Valente - Last Filed: 06/17/22 12:51> Reevaluation(s) Reevaluation #1: Patient admits to intravenous drug abuse, will check HIV hepatitis-C. This could indicate possible is, blood was other possible causes. <Enrique Rene MD - Last Filed: 06/04/22 16:43> Reevaluation #2: I discussed all results with the patient. We also discussed the inguinal lymphadenopathy. Will refer him to general surgeon for possible lymph node biopsy. I have also referred him to primary care/family practice. <Enrique Rene MD - Last Filed: 06/04/22 16:43> Time: 16:39 <Enrique Rene MD - Last Filed: 06/04/22 16:43> Medical Decision Making Medical Decision Making [facility] Narrative: 32-year-old male with no major medical problems presents with bilateral lower extremity edema. Symptoms started proximal an years ago. Associated with chronic skin changes. Denies any chest pain, shortness breath, orthopnea, PND. Examination did reveal 2+ bipedal edema. There are chronic skin changes. No evidence of cellulitis. Broad differential diagnosis currently considered. Ultrasound will be obtained. Will check for LFTs, renal dysfunction, hypoalbuminemia. <Enrique Rene MD - Last Filed: 06/04/22 16:43> Differential Diagnosis Differential Diagnoses: The differential diagnosis associated with the presentation includes (Edema, venous insufficiency, amyloidosis, renal insufficiency, hepatic disease, HIV, hepatitis, dependent edema) <Enrique Rene MD - Last Filed: 06/04/22 16:43> Bilateral lower extremity edema, lymphadenopathy <Enrique Rene MD - Last Filed: 06/04/22 16:43> Admission/Observation Consideration of admission/observation: Escalation of care including admission/observation considered <Enrique Rene MD - Last Filed: 06/04/22 16:43> Lab Data [facility] Lab Attestation statement: I reviewed the patient's lab results. <Enrique Rene MD - Last Filed: 06/04/22 16:43> Result Diagrams: 06/04/22 13:10 06/04/22 13:10 <LOYD Valente - Last Filed: 06/17/22 12:51> Labs: Lab Results 06/04/22 06/04/22 06/04/22 Range/Units 13:10 13:10 13:10 WBC 6.9 (4.8-10.8) X10*3/uL RBC 4.18 L (4.60-5.80) X10*6/uL Hgb 12.4 L (14.0-18.0) g/dl Hct 38.9 L (42.0-52.0) % MCV 93.1 (80.0-98.0) fL MCH 29.7 (27.0-33.0) pg MCHC 31.9 (31.0-36.0) g/dl RDW 12.8 (11.0-16.0) % Plt Count 221 (160-400) X10*3/uL MPV 8.7 L (9.4-12.4) fL Immature Gran % (Auto) 0.1 (0.0-0.4) % Neut % (Auto) 51.6 (45-73) % Lymph % (Auto) 37.1 (20-40) % [place] % (Auto) 8.8 (2-11) % Eos % (Auto) 2.0 (0-4) % Baso % (Auto) 0.4 (0-2) % Lymph # (Auto) 2.6 (1.2-4.9) X10*3/uL [place] # (Auto) 0.6 (0.1-1.2) X10*3/uL Eos # (Auto) 0.1 (0.0-0.4) X10*3/uL Baso # (Auto) 0.0 (0.0-0.2) X10*3/uL Abs Immat Gran (auto) 0.01 (0.00-0.03) X10*3/uL Absolute Neuts (auto) 3.6 (2.0-8.3) x10*3/uL Absolute Nucleated RBC 0.000 (0.0-0.012) X10*3/uL Nucleated RBC % (auto) 0.0 (0.0-0.2) /100WBC PT 11.0 (10.0-13.1) SEC INR 1.0 (0.9-1.1) APTT 38.0 H (26.0-36.4) SEC Sodium 142 (135-145) mmol/L Potassium 4.6 D (3.3-5.1) mmol/L Chloride 103 (96-108) mmol/L Carbon Dioxide 33 H (22-29) mmol/L Anion Gap 11 L (12-20) BUN 17 H (9-16) mg/dL Creatinine 1.06 (0.5-1.4) mg/dL Estim Creat Clear Calc 110.9 Estimated GFR > 60 Random Glucose 87 (60-115) mg/dL Calcium 9.3 (8.4-10.2) mg/dL Total Bilirubin 0.2 (0.0-1.0) mg/dL AST 15 (5-37) U/L ALT 12 (0-40) U/L Alkaline Phosphatase 74 (39-117) U/L B-Natriuretic Peptide (<100) pg/mL Total Protein 6.9 (6.5-8.0) g/dL Albumin 4.0 (3.5-5.0) g/dL Hepatitis A IgM Ab (Nonreactive) Hep Bs Antigen (Negative) Hep Bs Antibody (Nonreactive) Hep B Core Total Ab (Nonreactive) Hepatitis C Ab (EIA) (Nonreactive) HIV 1&2 Ab/P24 Ag 4thGn (Nonreactive) 06/04/22 06/04/22 Range/Units 13:10 13:10 WBC (4.8-10.8) X10*3/uL RBC (4.60-5.80) X10*6/uL Hgb (14.0-18.0) g/dl Hct (42.0-52.0) % MCV (80.0-98.0) fL MCH (27.0-33.0) pg MCHC (31.0-36.0) g/dl RDW (11.0-16.0) % Plt Count (160-400) X10*3/uL MPV (9.4-12.4) fL Immature Gran % (Auto) (0.0-0.4) % Neut % (Auto) (45-73) % Lymph % (Auto) (20-40) % [place] % (Auto) (2-11) % Eos % (Auto) (0-4) % Baso % (Auto) (0-2) % Lymph # (Auto) (1.2-4.9) X10*3/uL [place] # (Auto) (0.1-1.2) X10*3/uL Eos # (Auto) (0.0-0.4) X10*3/uL Baso # (Auto) (0.0-0.2) X10*3/uL Abs Immat Gran (auto) (0.00-0.03) X10*3/uL Absolute Neuts (auto) (2.0-8.3) x10*3/uL Absolute Nucleated RBC (0.0-0.012) X10*3/uL Nucleated RBC % (auto) (0.0-0.2) /100WBC PT (10.0-13.1) SEC INR (0.9-1.1) APTT (26.0-36.4) SEC Sodium (135-145) mmol/L Potassium (3.3-5.1) mmol/L Chloride (96-108) mmol/L Carbon Dioxide (22-29) mmol/L Anion Gap (12-20) BUN (9-16) mg/dL Creatinine (0.5-1.4) mg/dL Estim Creat Clear Calc Estimated GFR Random Glucose (60-115) mg/dL Calcium (8.4-10.2) mg/dL Total Bilirubin (0.0-1.0) mg/dL AST (5-37) U/L ALT (0-40) U/L Alkaline Phosphatase (39-117) U/L B-Natriuretic Peptide < 10 (<100) pg/mL Total Protein (6.5-8.0) g/dL Albumin (3.5-5.0) g/dL Hepatitis A IgM Ab Nonreactive (Nonreactive) Hep Bs Antigen Negative (Negative) Hep Bs Antibody REACTIVE (Nonreactive) Hep B Core Total Ab Nonreactive (Nonreactive) Hepatitis C Ab (EIA) Nonreactive (Nonreactive) HIV 1&2 Ab/P24 Ag 4thGn Nonreactive (Nonreactive) <LOYD Valente - Last Filed: 04/09/23 12:51> Lab Results 06/04/22 06/04/22 06/04/22 Range/Units 13:10 13:10 13:10 WBC 6.9 (4.8-10.8) X10*3/uL RBC 4.18 L (4.60-5.80) X10*6/uL Hgb 12.4 L (14.0-18.0) g/dl Hct 38.9 L (42.0-52.0) % MCV 93.1 (80.0-98.0) fL MCH 29.7 (27.0-33.0) pg MCHC 31.9 (31.0-36.0) g/dl RDW 12.8 (11.0-16.0) % Plt Count 221 (160-400) X10*3/uL MPV 8.7 L (9.4-12.4) fL Immature Gran % (Auto) 0.1 (0.0-0.4) % Neut % (Auto) 51.6 (45-73) % Lymph % (Auto) 37.1 (20-40) % [place] % (Auto) 8.8 (2-11) % Eos % (Auto) 2.0 (0-4) % Baso % (Auto) 0.4 (0-2) % Lymph # (Auto) 2.6 (1.2-4.9) X10*3/uL [place] # (Auto) 0.6 (0.1-1.2) X10*3/uL Eos # (Auto) 0.1 (0.0-0.4) X10*3/uL Baso # (Auto) 0.0 (0.0-0.2) X10*3/uL Abs Immat Gran (auto) 0.01 (0.00-0.03) X10*3/uL Absolute Neuts (auto) 3.6 (2.0-8.3) x10*3/uL Absolute Nucleated RBC 0.000 (0.0-0.012) X10*3/uL Nucleated RBC % (auto) 0.0 (0.0-0.2) /100WBC PT 11.0 (10.0-13.1) SEC INR 1.0 (0.9-1.1) APTT 38.0 H (26.0-36.4) SEC Sodium 142 (135-145) mmol/L Potassium 4.6 D (3.3-5.1) mmol/L Chloride 103 (96-108) mmol/L Carbon Dioxide 33 H (22-29) mmol/L Anion Gap 11 L (12-20) BUN 17 H (9-16) mg/dL Creatinine 1.06 (0.5-1.4) mg/dL Estim Creat Clear Calc 110.9 Estimated GFR > 60 Random Glucose 87 (60-115) mg/dL Calcium 9.3 (8.4-10.2) mg/dL Total Bilirubin 0.2 (0.0-1.0) mg/dL AST 15 (5-37) U/L ALT 12 (0-40) U/L Alkaline Phosphatase 74 (39-117) U/L B-Natriuretic Peptide (<100) pg/mL Total Protein 6.9 (6.5-8.0) g/dL Albumin 4.0 (3.5-5.0) g/dL Hepatitis A IgM Ab (Nonreactive) Hep Bs Antigen (Negative) Hep Bs Antibody (Nonreactive) Hep B Core Total Ab (Nonreactive) Hepatitis C Ab (EIA) (Nonreactive) HIV 1&2 Ab/P24 Ag 4thGn (Nonreactive) 06/04/22 06/04/22 Range/Units 13:10 13:10 WBC (4.8-10.8) X10*3/uL RBC (4.60-5.80) X10*6/uL Hgb (14.0-18.0) g/dl Hct (42.0-52.0) % MCV (80.0-98.0) fL MCH (27.0-33.0) pg MCHC (31.0-36.0) g/dl RDW (11.0-16.0) % Plt Count (160-400) X10*3/uL MPV (9.4-12.4) fL Immature Gran % (Auto) (0.0-0.4) % Neut % (Auto) (45-73) % Lymph % (Auto) (20-40) % [place] % (Auto) (2-11) % Eos % (Auto) (0-4) % Baso % (Auto) (0-2) % Lymph # (Auto) (1.2-4.9) X10*3/uL [place] # (Auto) (0.1-1.2) X10*3/uL Eos # (Auto) (0.0-0.4) X10*3/uL Baso # (Auto) (0.0-0.2) X10*3/uL Abs Immat Gran (auto) (0.00-0.03) X10*3/uL Absolute Neuts (auto) (2.0-8.3) x10*3/uL Absolute Nucleated RBC (0.0-0.012) X10*3/uL Nucleated RBC % (auto) (0.0-0.2) /100WBC PT (10.0-13.1) SEC INR (0.9-1.1) APTT (26.0-36.4) SEC Sodium (135-145) mmol/L Potassium (3.3-5.1) mmol/L Chloride (96-108) mmol/L Carbon Dioxide (22-29) mmol/L Anion Gap (12-20) BUN (9-16) mg/dL Creatinine (0.5-1.4) mg/dL Estim Creat Clear Calc Estimated GFR Random Glucose (60-115) mg/dL Calcium (8.4-10.2) mg/dL Total Bilirubin (0.0-1.0) mg/dL AST (5-37) U/L ALT (0-40) U/L Alkaline Phosphatase (39-117) U/L B-Natriuretic Peptide < 10 (<100) pg/mL Total Protein (6.5-8.0) g/dL Albumin (3.5-5.0) g/dL Hepatitis A IgM Ab Nonreactive (Nonreactive) Hep Bs Antigen Negative (Negative) Hep Bs Antibody REACTIVE (Nonreactive) Hep B Core Total Ab Nonreactive (Nonreactive) Hepatitis C Ab (EIA) Nonreactive (Nonreactive) HIV 1&2 Ab/P24 Ag 4thGn Nonreactive (Nonreactive) <Enrique Rene MD - Last Filed: 06/04/22 16:43> Independent Interpretation I performed an independent interpretation of an: Ultrasound (Her no evidence are TI oral or venous occlusion, prominent inguinal lymphadenopathy) <Enrique Rene MD - Last Filed: 06/04/22 16:43> Interpretation: US/US arterial duplex LE BI IMPRESSION: 1.? Patent deep arterial systems of both lower extremities. 2.? Monophasic waveforms are noted throughout the majority of both lower extremities suggesting inflow disease. Further evaluation can be obtained with CTA runoff if clinically indicated. ? ? Dictated By: Umesh Connors MD Signed By: <Electronically signed by Umesh Connors MD in [place]> 06/04/22 1537 DD/ 1409 TD/TT:? [employer]: PD <Enrique Rene MD - Last Filed: 06/04/22 16:43> Radiology Impression Discussion of test interpretation with radiology: I have reviewed the radiologist's reading. ( US/US venous duplex LE BI IMPRESSION: No DVT demonstrated in the lower extremities, bilaterally. Dictated By:Wanda Herreraigned By:<Electronically signed by Nick Herrera in [place]>06/04/22 1507) <Enrique Rene MD - Last Filed: 06/04/22 16:43> Discharge Plan Discharge Clinical Impression: Lower extremity edema, Inguinal adenopathy <LOYD Valente - Last Filed: 06/17/22 12:51> Patient Disposition: Home, Self-Care <LOYD Valente - Last Filed: 06/17/22 12:51> Instructions: Lymphadenopathy (ED), Leg Edema (ED) <LOYD Valente - Last Filed: 06/17/22 12:51> Additional Instructions: I am recommending that he use compression stockings, medium gauged, keep your legs elevated while sitting down or lying down. Any worsening or concerning symptoms, please return to the emergency department for re-evaluation. <LOYD Valente - Last Filed: 06/17/22 12:51> Prescriptions: New furosemide 20 mg tablet 20 mg PO DAILY Qty: 20 0RF Continued furosemide [Lasix] 20 mg tablet 20 mg PO DAILY Qty: 30 0RF Discontinued doxycycline monohydrate 100 mg capsule 100 mg PO BID 10 Days Qty: 20 0RF <LOYD Valente - Last Filed: 06/17/22 12:51> Referrals: [facility] [place] [facility] [Provider Group] Art Leon MD [Physician] - 1 week (regarding inguinal lymph nodes) <LOYD Valente - Last Filed: 06/17/22 12:51> Interventions: ED Discharge Assessment Last Done: 06/04/22 17:05 <LOYD Valente - Last Filed: 06/17/22 12:51> Discharge Date/Time: 06/04/22 17:06 <LOYD Valente - Last Filed: 06/17/22 12:51>
[2022-06-04 13:16] LABS: Basophils Percent Auto 0.4 % (0-2); Eosinophils Absolute Auto 0.1 X10*3/uL (0.0-0.4); Hematocrit 38.9 % (42.0-52.0); Hemoglobin 12.4 g/dl (14.0-18.0); Imm Gran Abs Auto 0.01 X10*3/uL (0.00-0.03); Imm Gran Pct Auto 0.1 % (0.0-0.4); Lymphocytes Absolute Auto 2.6 X10*3/uL (1.2-4.9); Lymphocytes Percent Auto 37.1 % (20-40); MANUAL DIFF FLAG NO; Mean Corpuscular HGB Conc 31.9 g/dl (31.0-36.0); Mean Corpuscular Hemoglobin 29.7 pg (27.0-33.0); Mean Corpuscular Volume 93.1 fL (80.0-98.0); Mean Platelet Volume 8.7 fL (9.4-12.4); Monocytes Absolute Auto 0.6 X10*3/uL (0.1-1.2); Monocytes Percent Auto 8.8 % (2-11); Neutrophils Absolute Auto 3.6 x10*3/uL (2.0-8.3); Neutrophils Percent Auto 51.6 % (45-73); Platelet Count 221 X10*3/uL (160-400); Red Blood Count 4.18 X10*6/uL (4.60-5.80); Red Cell Distribution Width 12.8 % (11.0-16.0); White Blood Count 6.9 X10*3/uL (4.8-10.8)
[2022-06-04 13:44] LABS: Alanine Aminotransferase 12 U/L (0-40); Alkaline Phosphatase 74 U/L (39-117); Anion Gap 11 (12-20); Aspartate Amino Transferase 15 U/L (5-37); Bilirubin Total 0.2 mg/dL (0.0-1.0); Blood Urea Nitrogen 17 mg/dL (9-16); Calcium 9.3 mg/dL (8.4-10.2); Carbon Dioxide 33 mmol/L (22-29); Chloride 103 mmol/L (96-108); Creatinine Clr Calc Pharmacy 110.9; Estimated Glomerular Filt Rate > 60; Glucose Random 87 mg/dL (60-115); Potassium 4.6 mmol/L (3.3-5.1); Sodium 142 mmol/L (135-145); Total Protein 6.9 g/dL (6.5-8.0)
[2022-06-04 13:48] LABS: B Type Natriuretic Peptide < 10 pg/mL (<100)
[2022-06-04 14:56] VITALS: BP 115/73; PULSE 62; RESP 15; TEMP 36.5; O2SAT 100
[2022-06-06 04:55] LABS: HBS Num1 106.67 mIU/mL (0-7.99); HBc Num1 0.07 S/CO (0.00-0.79); HIV AB/AG Nonreactive (Nonreactive); HIV Num 1 0.07 S/CO (0.00-0.99); Hepatitis B Core Antibody Nonreactive (Nonreactive); Hepatitis B Surface Antigen Negative (Negative); ~HepC Num1 0.25 S/CO (0.00-0.79); ~Hepatitis A Antibody IgM Nonreactive (Nonreactive); ~Hepatitis B Surface Antibody REACTIVE (Nonreactive); ~Hepatitis C Antibody Nonreactive (Nonreactive)
== END 2022-06-04 17:06 | disposition home or self-care (01) ==
PROVIDERS: Physician Assistant; Emergency Provider Emergency Medicine
DX: R60.0 Localized edema (principal); R59.0 Localized enlarged lymph nodes; R06.02 Shortness of breath; Z79.899 Other long term (current) drug therapy
CPT/HCPCS: 36415; 80053; 83880; 85025; 85610; 85730; 86704; 86706; 86709; 86803; 87340; 87389; 93925; 93970; 99283; 99284

== ENCOUNTER 2024-04-03 11:49 | Outpatient (REF) | payer MEDICAID, SELFPAY ==
[2024-04-03 13:58] LABS: Anion Gap 9 (12-20); Blood Urea Nitrogen 19 mg/dL (9-16); Calcium 8.9 mg/dL (8.4-10.2); Carbon Dioxide 30 mmol/L (22-29); Chloride 104 mmol/L (96-108); Cholesterol 158 mg/dL (<200); Estimated Glomerular Filt Rate > 60; Glucose Random 100 mg/dL (60-115); HDL Cholesterol 49 mg/dL (>40); LDL Cholesterol Calculated 98 mg/dL (<100); Potassium 4.3 mmol/L (3.3-5.1); Sodium 139 mmol/L (135-145); Triglycerides 57 mg/dL (<150)
--- OUTSIDE RECORDS SUMMARY | 2024-04-03 13:58 | XMS_ITS | Encounter Summary ---
Author Organization [facility] Address [address] [place] [address] [address] [place] [address] Care Team Providers Care Continuous Process Rotary Drum Tanner Name Role Phone Valeri Villanueva Primary Care Provider [phone] Reason for Referral * Imaging (Routine) - Authorized Specialty Diagnoses / Procedures Referred By Cora mendoza Referred To Contact Cardiology Diagnoses Encounter for routine child health examination w/o abnormal findings Procedures Lower Extremity Venous Duplex Valeri Villanueva FNP [address] [place] [address] Phone: tel: fax: [address] Phone: tel: fax: Referral ID Status Reason Start Date Expiration Date Visits Requested Visits Authorized [id number] Authorized Perform Procedure 04/01/2024 04/01/2025 1 1 Encounter Details Date Type Department Care Team (Late st Contact Info) Description 04/01/2024 2:45 PM EST Office Visit [facility] [address] [place], [place] [phone] Valeri Villanueva FNP [address] [place], [place] [phone] Encounter for adult wellness visit (Primary Dx); Dietary counseling; Exercise counseling; Opioid abuse (CMS/HCC); Edema of both feet; Anxiety and depression; Tobacco use disorder; Chronic venous stasis dermatitis of lower extremity Social History Tobacco Use Types Packs/Day Years Used Date Smoking Tobacco: Every Day Cigarettes Smokeless Tobacco: Current Tobacco Cessation:Ready to Q uit: Not Asked; Counseling Given: Not Answered Comments:Smokes 2 cigarettes per day Alcohol Use Standard Drinks/Week Comments Never 0 (1 standard drink = 0.6 oz pur e alcohol) Depression Answer Date Recorded Patient Health Questionnaire-9 Score 4 04/01/2024 Patient Health Questionnaire-9 Score 4 04/01/2024 Last PHQ-9: Questionnaire Data Not on file 0 04/01/2024 Housing Stability Answer Date Recorded What is your housing situation today? I have facundo leigh 03/20/[address] you li ve. Do you have problems with any of the following? None of the above 03/20/2024 Food Insecurity Answer Date Recorded Within the past 12 months, y ou worried that your food would run out before you got money to buy more: Sometimes True 2024 Within the past 12 months,th e food you bought just didn't last and you didn't have enough money to get more: Sometimes True 03/20/2024 Transportation Answer Date Recorded In the past 12 months, has l ack of transportation kept you from medical appts, meetings, work or from getting things needed for daily living? No 03/20/2024 Utilities Answer Date Recorded In the past 12 months, has t he electric, gas, oil or water company threatened to shut off services in your home? No 03/20/2024 Depression Answer Date Recorded Patient Health Questionnaire-2 Score 2 04/01/2024 Internet Access Answer Date Recorded Internet Access Q1 Yes 03/20/2024 Internet Access Q2 Not on file 03/20/2024 Sex and Gender Information Value Date Recorded Sex Assigned at Male 01/08/2022 10:24 AM EDT Legal Sex Male 10:24 AM EDT Gender Identity Male 01/23/2024 3:34 PM EST Sexual Orientation Straight 01/23/2024 3: 20 PM EST documented as of this encounter Last Filed Vital Signs Vital Sign Reading Time Taken Comments Blood Pressure 117/72 04/01/2024 3:00 PM EST Pulse 75 04/01/2024 3:00 PM EST Temperature 36.2 ??C (97.1 ??F) 04/01/2024 3:00 PM ES T Respiratory Rate 20 04/01/2024 3:00 PM EST Oxygen Saturation 95% 04/01/2024 3:00 PM EST Inhaled Oxygen Concentration - - Weight 89.9 kg (198 lb 4 oz) 04/01/2024 3:00 PM EST Height 185.4 cm (6' 1 ) 04/01/2024 3:00 PM EST Body Mass Index 26.16 04/01/2024 3:00 PM EST documented in this encounter Progress Notes * Valeri Villanueva, EUFEMIA - 04/01/2024 2:45 PM EST Subjective: Annabelle Ely is a 33 y.o. male who presents to the office for a physical exam in company of mother. Reports previous PCP Ganga Current concerns: Patient concerned by discolored, very dry bilateral feet. Edematous + 1, reports he fisrt noticed when he about 16 years. Was seen in the [facility] for leg pain on 01/23/2024 after scratching a scab and itstarted to spray blood out. Patient was referred to vascular surgery on 03/20/2024. No appointment set . At today visit, bilateral lower extremities edema right foot bigger than left foot, positive for discoloration, skin dry and flaky, no pain Patient also requested for a signature for food stamp patient redirected to medical records for submission Patient Active Problem List Diagnosis Encounter for adult wellness visit Dietary counseling Exercise counseling Opioid abuse (CMS/HCC) Edema of both feet Anxiety and depression Tobacco use disorder Chronic venous stasis dermatitis of lower extremity History reviewed. No pertinent surgical history. Family History Problem Relation Name Age of Onset Diabetes Maternal Grandmother Social History Living situation: Unstable accomodation switches sleeping in mother and girlfriends home. Has threechildren, one lives with mother and the other two with his current and girlfriend and her children Safety:No fire arms in the home. Working smoke and fire alarm. Reports home and environment safe Employment/Education: unemployed Diet/exercise: Eats variety of food including fruits and vegetables. No routine exercise Substance use: Marijuana, opiods and cigarettes, denies use of alchol Sexual preference women Sexual activity: Sexually active with single partner Dental: Dental home Mental health: Denies SI, harming self or others No Known Allergies No current outpatient medications on file. No current facility-administered medications for this visit. Health Maintenance Topic Date Due Lipid Panel Never done HIV Screening Never done Family Planning (PISQ) Never done Hepatitis C Screening Never done Hepatitis B Vaccines (1 of 3 - 19+ 3-dose series) Never done Hepatitis A Vaccines (1 of 2 - Risk 2-dose series) Never done COVID-19 Vaccine ( - season) Never done Influenza Vaccine (1) 09/07/2024 (Originally 11/10/2023) Pneumococcal Vaccine: Pediatrics (0 to 5 Years) and At-Risk Patients (6 to 64 Years) (1 of 2 - PCV)04/02/2025 (Originally 1994) SDOH Screening 03/20/2025 Depression Screening 04/01/2025 Tobacco Screening 04/01/2025 Alcohol/Substance Use Screening 04/01/2025 Diabetes: Hemoglobin A1C 04/01/2025 DTaP/Tdap/Td Vaccines (2 - Td or Tdap) 05/01/2033 Zoster Vaccines (1 of 2) 2038 RSV Patients and Patients Aged 60 years or older (1 - 1-dose 75+ series) 05/31/2063 RSV under 20 months Aged Out HIB Vaccines Aged Out IPV Vaccines Aged Out Meningococcal Vaccine Aged Out Rotavirus Vaccines Aged Out HPV Vaccines Aged Out Review of Systems Constitutional: Negative for activity change and appetite change. HENT: Negative for congestion, ear discharge, hearing loss and trouble swallowing. Eyes: Negative for pain and discharge. Respiratory: Negative for apnea, cough, shortness of breath and wheezing. Cardiovascular: Negative for chest pain, palpitations and leg swelling. Gastrointestinal: Negative for abdominal distention, abdominal pain, constipation, diarrhea and nausea. Endocrine: Negative for cold intolerance and heat intolerance. Genitourinary: Negative for difficulty urinating, frequency and penile discharge. Musculoskeletal: Negative for back pain and gait problem. Skin: Positive for color change. Negative for wound. Bilateral lower extremities discoloration Neurological: Negative for dizziness, facial asymmetry and speech difficulty. Psychiatric/Behavioral: Negative for agitation, confusion, sleep disturbance and suicidal ideas. The patient is not nervous/anxious. Objectives Visit Vitals BP 117/72 (BP Location: Right arm, Patient Position: Sitting, BP Cuff Size: Adult) Pulse 75 Temp 97.1 ??F (36.2 ??C) (Oral) Resp 20 Ht 6' 1 (1.854 m) Wt 198 lb 4 oz (89.9 kg) SpO2 95% BMI 26.16 kg/m?? Smoking Status Every Day BSA 2.15 m?? Patient Health Questionnaire-9 Score: 4 (04/01/2024 3:02 PM) MARTA-7 Total Score: 15 (04/01/2024 3:57 PM) Physical Exam Constitutional: Appearance: Normal appearance. HENT: Head: Normocephalic and atraumatic. Right Ear: Tympanic membrane, ear canal and external ear normal. Left Ear: Tympanic membrane, ear canal and external ear normal. Nose: Nose normal. Mouth/Throat: Mouth: Mucous membranes are moist. Eyes: Extraocular Movements: Extraocular movements intact. Pupils: Pupils are equal, round, and reactive to light. Cardiovascular: Rate and Rhythm: Normal rate and regular rhythm. Pulses: Normal pulses. Heart sounds: Normal heart sounds. No murmur heard. Pulmonary: Effort: Pulmonary effort is normal. Breath sounds: Normal breath sounds. No wheezing. Abdominal: General: Bowel sounds are normal. Tenderness: There is no guarding. Musculoskeletal: Cervical back: Normal range of motion. Right lower leg: Edema present. Left lower leg: Edema present. Comments: Bilateral LE edema, pitting Right +2 left +1 Skin: General: Skin is warm and dry. Capillary Refill: Capillary refill takes less than 2 seconds. Comments: Bilateral lower extremities discoloration Neurological: General: No focal deficit present. Mental Status: He is alert and oriented to person, place, and time. Psychiatric: Mood and Affect: Mood normal. Behavior: Behavior normal. Thought Content: Thought content normal. Judgment: Judgment normal. Routine Screening and Health Maintenance Dental: Yes ASCVD risk: 33 y.o. male smoker sedentary lifestyle Lab Review: orders written for new lab studies as appropriate; see orders Immunization: Vaccines due offered patient declined Problem List Items Addressed This Visit Encounter for adult wellness visit - Primary Relevant Orders POCT Glucose (Completed) POCT HGB A1C (Completed) Chlamydia/N. Gonorrhoeae RNA, TMA, Urogenitial Lipid Panel, Standard Hepatitis C Antibody with Reflex to HCV, RNA, Quantitative, Real-Time PCR HIV-1/2 Antigen and Antibodies, Fourth Generation, with Reflexes Hepatitis B Surface Antibody, Qualitative Hepatitis B Core Antibody, Total Hepatitis B surface antigen, EIA Basic Metabolic Panel Lower Extremity Venous Duplex Dietary counseling Current Assessment & Plan Eat 3 meals a day, especially breakfast Eat healthy and focus on healthyfood choices daily fruits, vegetables, grains, low fat milk, low carbohydrate and fat Maintain healthy weight as this will lower your risk for many health problems. Exercise counseling Current Assessment & Plan Aerobic exercise at least 30 minutes a day and increase as tolerated Opioid abuse (CMS/[facility]) Current Assessment & Plan Abuse opiods OBAT and other supports offered, patient declined and stated not ready to quit Edema of both feet Current Assessment & Plan Bilateral feet edema worse on right than left over 5 years Discolored dry skin Referral to vascular surgeon Bilateral lower extremities venous duplex ultra sound Anxiety and depression Current Assessment & Plan Patient Health Questionnaire-9 Score: 4 (04/01/2024 3:02 PM) MARTA-7 Total Score: 15 (04/01/2024 3:57 PM) Patient reports anxiety and trauma Patient education on resources agreed to consult. Decline further consults with Tobacco use disorder Current Assessment & Plan Smokes daily. Patient verbalized not ready to quit declines alternates and support at this vist Will offer again at next visit Chronic venous stasis dermatitis of lower extremity Current Assessment & Plan Referral to vascular surgeon Thickened discolored bilateral lower extremities with edema Dry skin with cracks / crust Elevate legs while sitting Exercise daily Wear your compression stockings Avoid eating food with high salt Moisturize your skin [facility] [employer] Attestation [employer] Resident Attestation: Patient was seen and evaluated by Valeri FALL , in collaboration with Kirstin Rogers MD who has reviewed my assessment and plan. I, Kirstin Rogers MD , have reviewed the resident's note and agree with the assessment &plan of care as documented above. documented in this encounter Miscellaneous Notes * Assessment & Plan Note - EUFEMIA Jian - 04/02/2024 1:29 AM ESTAssociated Problem(s): Anxiety and depression Patient Health Questionnaire-9 Score: 4 (04/01/2024 3:02 PM) MARTA-7 Total Score: 15 (04/01/2024 3:57 PM) Patient reports anxiety and trauma Patient education on resources agreed to consult. Decline further consults with * Assessment & Plan Note - EUFEMIA Jain - 04/02/2024 1:13 AM ESTAssociated Problem(s): Edema of both feet Bilateral feet edema worse on right than left over 5 years Discolored dry skin Referral to vascular surgeon Bilateral lower extremities venous duplex ultra sound * Assessment & Plan Note - EUFEMIA Jain - 04/02/2024 1:03 AM ESTAssociated Problem(s): Chronic venous stasis dermatitis of lower extremity Referral to vascular surgeon Thickened discolored bilateral lower extremities with edema Dry skin with cracks / crust Elevate legs while sitting Exercise daily Wear your compression stockings Avoid eating food with high salt Moisturize your skin * Assessment & Plan Note - EUFEMIA Jain - 04/02/2024 12:43 AM EST Associated Problem(s): Tobacco use disorder Smokes daily. Patient verbalized not ready to quit declines alternates and support at this vist Will offer again at next visit * Assessment & Plan Note - EUFEMIA Jain - 04/02/2024 12:41 AM EST Associated Problem(s): Opioid abuse (CMS/HCC) Abuse opiods OBAT and other supports offered, patient declined and stated not ready to quit * Assessment & Plan Note - EUFEMIA Jain - 04/02/2024 12:38 AM EST Associated Problem(s): Exercise counseling Aerobic exercise at least 30 minutes a day and increase as tolerated * Assessment & Plan Note - EUFEMIA Jain - 04/02/2024 12:36 AM EST Associated Problem(s): Dietary counseling Eat 3 meals a day, especially breakfast Eat healthy and focus on healthyfood choices daily fruits, vegetables, grains, low fat milk, low carbohydrate and fat Maintain healthy weight as this will lower your risk for many health problems. documented in this encounter Plan of Treatment Scheduled Orders Name Type Priority Associated Diagnoses Orde r Schedule Chlamydia/N. Gonorrhoeae RNA, TMA, Urogenitial Microbiology Routine Encounter for adult wellness visit Ordered: 04/01/2024 Lipid Panel, Standard Lab Routine Encounter for adult wellness visit Expected: 04/01/2024 (Approximate), Expires: 04/01/2025 Hepatitis C Antibody with Reflex to HCV, RNA, Quantitative, Real-Time PCR Lab Routine Encounter for adult wellness visit Expected: 04/01/2024, Expires: 04/01/2025 HIV-1/2 Antigen and Antibodies, Fourth Generation, with Reflexes Lab Routine Encounter for adult wellness visit Expected: 04/01/2024 (Approximate), Expires: 04/01/2025 Hepatitis B Surface Antibody, Qualitative Lab Routine Encounter for adult wellness visit Expected: 04/01/2024 (Approximate), Expires: 04/01/2025 Hepatitis B Core Antibody, Total Lab Routine Encounter for adult wellness visit Expected: 04/01/2024 (Approximate), Expires: 04/01/2025 Hepatitis B surface antigen, EIA Lab Routine Encounter for adult wellness visit Expected: 04/01/2024 (Approximate), Expires: 04/01/2025 Basic Metabolic Panel Lab Routine Encounter for adult wellness visit Expected: 04/01/2024 (Approximate), Expires: 04/01/2025 documented as of this encounter Procedures Procedure Name Priority Date/Time Associated Diagnosis Comments POCT GLYCATED HEMOGLOBIN, TOTAL Routine 04/01/2024 3:06 PM EST Encounter for adult wellness visit POCT GLUCOSE Routine 04/01/2024 3:05 PM EST Encounter for adult wellness visit documented in this encounter Results * POCT HGB A1C (04/01/2024 3:06 PM EST) Hemoglobin A1C 5.8 4.0 - 6.0 % QC Media Lot # [id number] Lot# Expiration Date [id number] Blood 04/01/2024 3:06 PM EST Valeri FALL POINT OF CARE TEST ENTER/EDIT ORDERABLES Final Result * POCT Glucose (04/01/2024 3:05 PM EST) Glucose Blood, POC 96 60 - 200 mg/dL QC Media Lot # [id number] Lot# Expiration Date [id number] Blood Capillary blood specimen / Unknown 04/01/2024 3:05 PM EST Valeri FALL POINT OF CARE TEST ENTER/EDIT ORDERABLES Final Result documented in this encounter Visit Diagnoses Diagnosis Encounter for adult wellness visit- Primary Dietary counseling Dietary surveillance and counseling Exercise counseling Opioid abuse ([facility]) Nondependent opioid abuse, unspecified Edema of both feet Anxiety and depression Tobacco use disorder Chronic venous stasis dermatitis of lower extremity documented in this encounter Additional Health Concerns Assessment Noted Time PHQ-9 Depression Total Score: 4 04/01/19 3:02 PM EST documented as of this encounter Care Teams Continuous Process Rotary Drum Tanner Relationship Specialty Start Date End Date Valeri Villanueva FNP [address] [place] [id number] PCP - General Family Medicine 04/01/24 documented as of this encounter
--- OUTSIDE RECORDS SUMMARY | 2024-04-03 13:58 | XMS_ITS | Clinical Summary ---
Author Organization [employer] Address [address] [facility] 7t [place] [address] Care Team Providers Care Medication Aid Name Role Phone Valeri Villanueva [facility] Primary Care Provider [phone] Allergies No known active allergies Medications * This document contains information received from the source organization and may not represent a complete record from that organization. No known medications Active Problems Problem Noted Date Diagnosed Date Encounter for adult wellness visit 04/02/2024 Dietary counseling 04/02/2024 Assessment & Plan (04/02/2024 1:05 AM EST): Eat 3 meals a day, especially breakfast Eat healthy and focus on healthyfood choices daily fruits, vegetables, grains, low fat milk, low carbohydrate and fat Maintain healthy weight as this will lower your risk for many health problems. Exercise counseling 04/02/2024 Assessment & Plan (04/02/2024 12:38 AM EST): Aerobic exercise at least 30 minutes a day and increase as tolerated Opioid abuse 04/02/2024 Assessment & Plan (04/02/2024 12:41 AM EST): Abuse opiods OBAT and other supports offered, patient declined and stated not ready to quit Edema of both feet 04/02/2024 Assessment & Plan (04/02/2024 1:16 AM EST): Bilateral feet edema worse on right than left over 5 years Discolored dry skin Referral to vascular surgeon Bilateral lower extremities venous duplex ultra sound Anxiety and depression 04/02/2024 Assessment & Plan (04/02/2024 1:29 AM EST): Patient Health Questionnaire-9 Score: 4 (04/01/2024 3:02 PM) MARTA-7 Total Score: 15 (04/01/2024 3:57 PM) Patient reports anxiety and trauma Patient education on resources agreed to consult. Decline further consults with Tobacco use disorder 04/02/2024 Assessment & Plan (04/02/2024 12:43 AM EST): Smokes daily. Patient verbalized not ready to quit declines alternates and support at this vist Will offer again at next visit Chronic venous stasis dermatitis of lower extrem ity 04/02/2024 Assessment & Plan (04/02/2024 1:04 AM EST): Referral to vascular surgeon Thickened discolored bilateral lower extremities with edema Dry skin with cracks / crust Elevate legs while sitting Exercise daily Wear your compression stockings Avoid eating food with high salt Moisturize your skin Encounters * This document contains information received from the source organization and may not represent a complete record from that organization. Date Type Department Care Team Description 04/01/2024 2:45 PM EST Office Visit [address] [address] Valeri Villanueva FNP Encounter for adult wellness visit (Primary Dx); Dietary counseling; Exercise counseling; Opioid abuse ([facility]); Edema of both feet; Anxiety and depression; Tobacco use disorder; Chronic venous stasis dermatitis of lower extremity 04/01/2024 Travel 03/24/[address] [address] Felicia Vu MA Chart Prep 03/20/2024 Patient Outreach [address] [address] Valeri Villanueva FNP Care Coordination (CHW outreach for SDOH PT-1 and food needs-referral completed /) 03/20/2024 Patient Outreach [address] [address] Valeri Villanueva FNP Pre-visit Planning (SDOH Screening positive and Tobacco screening positive) 03/19/[address] [address] Louis oPsey MD New patient appt. 01/23/2024 3:40 PM EST Office Visit [facility] [address] [place] [address] Marika Harvey NP Venous insufficiency of lower extremity (Primary Dx) 01/23/2024 Telephone [facility] [address] [place] [address] Louis Posey MD from Last 3 Months Immunizations Name Administration Dates Next Due Influenza injectable quadrivalent preservative f ree 03/21/2019 Tdap 05/01/2023 Family History Medical History Relation Name Comments Diabetes Maternal Grandmother Relation Name Status Comments Maternal Grandmother Social History Tobacco Use Types Packs/Day Years [...] Orientation Straight 01/23/2024 3: 20 PM EST Last Filed Vital Signs Vital Sign Reading [...] Mass Index 26.16 04/01/2024 3:00 PM EST Plan of Treatment Health Maintenance Due Date Last Done Comments HIV Screening 1988 Lipid Panel 1988 Family Planning (PISQ) 05/31/2003 Hepatitis C Screening 2006 Hepatitis A Vaccines (1 of 2 - Risk 2-dose series) 05/31/2007 Hepatitis B Vaccines (1 of 3 - 19+ 3-dose series) 05/31/2007 COVID-19 Vaccine (1 - 2023-2 5 season) 2023 Influenza Vaccine (#1) 2024 03/21/2019 Postp oned from 11/10/2023 (Patient Refused) SDOH Screening 03/20/2025 03/20/2024 Alcohol/Substance Use Screening 04/01/2025 04/01/2024 Depression Screening 04/01/2025 04/01/2024, 04/01/2024 Diabetes: Hemoglobin A1C 04/01/2025 04/01/2024 Tobacco Screening 04/01/2025 04/01/2024 Pneumococcal Vaccine: Pediatrics (0 to 5 Years) and At-Risk Patients (6 to 64 Years) (1 of 2 - PCV) 04/02/2025 Postponed from (Patient Refused) DTaP/Tdap/Td Vaccines (2 - T d or Tdap) 05/01/2033 05/01/2023 Zoster Vaccines (1 of 2) 2038 RSV Patients and Patients Aged 60 years or older (1 - 1-dose 75+ series) 05/31/2063 HIB Vaccines Aged Out No longer eligi ble based on patient's age to complete this topic HPV Vaccines Aged Out No longer eligi ble based on patient's age to complete this topic IPV Vaccines Aged Out No longer eligi ble based on patient's age to complete this topic Meningococcal Vaccine Aged Out No ines manolo eligible based on patient's age to complete this topic RSV under 20 months Aged Out No longe r eligible based on patient's age to complete this topic Rotavirus Vaccines Aged Out No longer eligible based on patient's age to complete this topic Procedures Procedure Name Priority Date/Time Associated Diagnosis Comments POCT GLYCATED HEMOGLOBIN, TOTAL Routine 04/01/2024 3:06 PM EST Encounter for adult wellness visit POCT GLUCOSE Routine 04/01/2024 3:05 PM EST Encounter for adult wellness visit from Last 3 Months Results * POCT HGB A1C (04/01/2024 3:06 PM EST) Hemoglobin A1C 5.8 4.0 - 6.0 % QC Media Lot # [id number] Lot# Expiration Date [id number] Blood 04/01/2024 3:06 PM EST Valeri Kay OPEN HEARTH STOCKYARD SUPERVISOR POINT OF CARE TEST ENTER/EDIT ORDERABLES Final Result * POCT Glucose (04/01/2024 3:05 PM EST) Glucose Blood, POC 96 60 - 200 mg/dL QC Media Lot # [id number] Lot# Expiration Date [id number] Blood Capillary blood specimen / Unknown 04/01/2024 3:05 PM EST us Valeri Okhipo OPEN HEARTH STOCKYARD SUPERVISOR POINT OF CARE TEST ENTER/EDIT ORDERABLES Final Result from Last 3 [place] [id number] [facility] [address] [place] [id number] [place] [id number] [place] [phone] Care Teams Medication Aid Relationship Specialty Start Date End Date Valeri Villanueva FNP [address] [place] [id number] PCP - General Family Medicine 04/01/24
--- OUTSIDE RECORDS SUMMARY | 2024-04-03 13:58 | XMS_ITS | Encounter Summary ---
Author Organization [employer] [facility] Address [address] [facility] [address] [facility] [address] 7[address] [place] [address] Care Team Providers Care Regional Extension Service Specialist Name Role Phone Unavailable Primary Care Provider Unavailabl e Reason for Visit * Reason Onset Date Comments Chart Prep 03/24/2024 Encounter Details Date Type Department Care Team ([facility] st Contact Info) Description 03/24/2024 Telephone [facility] [address] [place] [address] Felicia Vu MA Chart Prep Social History Tobacco Use Types Packs/Day Years Used Date Smoking Tobacco: Every Day Cigarettes Comments:Smokes 2 cigarettes per day Housing Stability Answer Date Recorded What is [...] off services in your home? No 03/20/2024 Internet Access Answer Date Recorded Internet Access Q1 Yes 03/20/2024 Internet Access Q2 Not on file 03/20/2024 Sex and Gender Information Value Date Recorded Sex Assigned at Male 01/08/2022 10:24 AM EDT Legal Sex Male 10:24 AM EDT Gender Identity Male 01/23/2024 3:34 PM EST Sexual Orientation Straight 01/23/2024 3: 20 PM EST documented as of this encounter Miscellaneous Notes * Telephone Encounter - Felciia Vu MA - 03/24/2024 10:53 AM EST Chart Prep Labs: not applicable Images: not applicable Vaccines due: Covid Due, Hep B Due, PCV20 Due, and Flu Due Referrals: Not Applicable Screenings: HIV screening and Hep C, Lipid panel Overdue care gaps: Sbirt, PHQ-9, and Oral Health documented in this encounter Plan of Treatment Not on file documented as of this encounter Visit Diagnoses Not on filedocumented in this encounter
--- OUTSIDE RECORDS SUMMARY | 2024-04-03 13:58 | XMS_ITS | Encounter Summary ---
Author Organization [employer] Address [address] [facility] [address] [address] [place] [address] Care Team Providers Care Project Coordinator Name Role Phone Valeri Villanueva [facility] Primary Care Provider [phone] Encounter Details Date Type Department Care Team (Latest Contact Info) Description 04/01/2024 Travel Social History Tobacco Use Types Packs/Day Years Used Date Smoking Tobacco: Every Day Cigarettes Smokeless Tobacco: Current Comments:Smokes 2 cigarettes per day Alcohol Use [...] PM EST documented as of this encounter Plan of Treatment Not on file documented as of this encounter Visit Diagnoses Not on filedocumented in this encounter Additional Health Concerns Assessment Noted Time PHQ-9 Depression Total Score: 4 04/01/19 3:02 PM EST documented as of this encounter Care Teams Project Coordinator Relationship Specialty Start Date End Date Valeri Villanueva FNP [address] [place] [id number] PCP - General Family Medicine 04/01/24 documented as of this encounter
--- OUTSIDE RECORDS SUMMARY | 2024-04-03 13:59 | XMS_ITS | Encounter Summary ---
Author Organization [employer] Address [address] [facility] 7t [place] [address] Care Team Providers Care Wet Plant Operator Name Role Phone Unavailable Primary Care Provider Unavailabl e Reason for Visit * Reason Comments Care Coordination CHW outreach for SDO H PT-1 and food needs-referral completed Encounter Details Date Type Department Care Team (Latest Contact Info) Description 03/20/2024 Patient Outreach [facility] [address] [place] [address] Valeri Villanueva FNP [address] [place] [address] Care Coordination (CHW outreach for SDOH PT-1 and food needs-referral completed /) Social History Tobacco Use Types Packs/Day Years [...] PM EST documented as of this encounter Progress Notes * Jacques Jj - 03/20/2024 1:29 PM EST CHW Jacques Jj, placed outbound call to patient for assistance with SDOH as a referral was received by the provider. Patient's name and were confirmed. Patient screened positive for the following SDOH food insecurities. CHW referral patient to the local list of pantries in the area for help. Patient verbalizes understanding, and able to agree with plan to follow up. Patient educated on ex tended clinic hours on Mondays through Wednesdays, and Walk-In Urgent Care Located in [facility] of [facility].Patient provided with after-hours line for [facility], , which offer night time triage serviceand option to transfer to compensation vice president provider if needed. documented in this encounter Plan of Treatment Not on file documented as of this encounter Visit Diagnoses Not on filedocumented in this encounter
--- OUTSIDE RECORDS SUMMARY | 2024-04-03 13:59 | XMS_ITS | Encounter Summary ---
Author Organization [employer] [facility] Address [address] [facility] [address]t [place] [address] Care Team Providers Care Reel Tender Name Role Phone Unavailable Primary Care Provider Unavailabl e Reason for Visit * Reason Onset Date Comments New patient appt. 03/19/2024 Encounter Details Date Type Department Care Team ([facility] Contact Info) Description 03/19/2024 Telephone [facility] [address] [place] [address] Louis Posey MD [address] [place] [address] New patient appt. Social History Tobacco Use Types Packs/Day Years [...] encounter Miscellaneous Notes * Telephone Encounter - Nathalie Houston - 03/19/2024 9:24 AM EST Outgoing call to pt to book STRIPPER MACHINE OPERATOR appt. Patient booked for 04/01/24 with STRATEGIC PLANNING CONSULTANT Mo. No medical conditions reported. Appt reminder sent via text and mail. documented in this encounter Plan of Treatment Not on file documented as of this encounter Visit Diagnoses Not on filedocumented in this encounter
--- OUTSIDE RECORDS SUMMARY | 2024-04-03 13:59 | XMS_ITS | Encounter Summary ---
Author Organization [employer] [facility] Address [address] [facility] 7t [place] [address] Care Team Providers Care Counselor Manager Name Role Phone Unavailable Primary Care Provider Unavailabl e Reason for Visit * Reason Comments Pre-visit Planning SDOH Screening posit benito and Tobacco screening positive Encounter Details Date Type Department Care Team ([facility] Contact Info) Description 03/20/2024 Patient Outreach [facility] [address] [place] [address] Valeri Villanueva FNP [address] [place] [address] Pre-visit Planning (SDOH Screening positive and Tobacco screening positive) Social History Tobacco Use Types Packs/Day Years [...] as of this encounter Progress Notes * Ora Morales - 03/20/2024 12:57 PM EST FLORY Ellis placed successful outbound call to patient for pre-visit planning. Patient name and confirmed. Patient confirms appt date and time, and has transportation arrangements. Biggest concern for appointment at this time is no concerns. Patient advised to bring to appointment a photo id and insurance card. Appropriate screenings completed in anticipation of appointment. Tobacco screening positive. Will need counseling. SDOH positive. Patient looking for assistance with Food insecurities:Sometimes. Referral will be placed. documented in this encounter Plan of Treatment Not on file documented as of this encounter Visit Diagnoses Not on filedocumented in this encounter
[2024-04-04 08:18] LABS: HBS Num1 100.35 mIU/mL (0-7.99); HBc Num1 0.12 S/CO (0.00-0.79); HBsAGNum1 0.35 S/CO (0.00-0.99); HIV AB/AG Nonreactive (Nonreactive); HIV Num 1 0.06 S/CO (0.00-0.99); Hepatitis B Core Antibody Nonreactive (Nonreactive); Hepatitis B Surface Antigen Negative (Negative); ~HepC Num1 0.23 S/CO (0.00-0.79); ~Hepatitis B Surface Antibody REACTIVE (Nonreactive); ~Hepatitis C Antibody Nonreactive (Nonreactive)
== END 2024-04-03 11:50 | disposition home or self-care (01) ==
LOC: HO.HHCL 11:49
PROVIDERS: Visit Provider Nurse Practitioner Family
DX: Z00.00 Encounter for general adult medical examination without abnormal findings (principal); Z11.4 Encounter for screening for human immunodeficiency virus [HIV]
CPT/HCPCS: 36415; 80048; 80061; 86704; 86706; 86803; 87340; 87389

== ENCOUNTER 2024-04-22 13:15 | Outpatient (REF) | payer MEDICAID, SELFPAY ==
--- NOTE | ~2024-04-22 | US_ITS ---
EXAMINATION: US TRIPLEX LOWER EXTREMITY, BILATERAL CLINICAL INFORMATION: Edema, lower extremities. COMPARISON: None available. TECHNIQUE: Color-flow triplex imaging with spectral analysis and compression Doppler were performed on the bilateral lower extremities. FINDINGS: Respiratory variation, normal compression and augmented flow are noted throughout the bilateral lower extremities. The visualized common femoral vein, superficial femoral vein, profunda femoral vein, popliteal vein and midcalf peroneal and posterior tibial venous segments show no evidence of deep venous thrombosis bilaterally. There is no Ferris's cyst. Prominent lymph nodes in the inguinal regions. Probable varices in the right calf. US/US venous duplex LE BI IMPRESSION: No acute deep venous thrombosis involving the bilateral lower extremities. Negative DVT. Electronically signed by: German Liu MD 04/22/2024 02:06 PM [facility]
--- OUTSIDE RECORDS SUMMARY | 2024-04-22 14:35 | XMS_ITS | Encounter Summary ---
Author Organization [employer] [facility] Address [address] [facility] [address] [place] [address] Care Team Providers Care Franchise Sales Director Name Role Phone Unavailable Primary Care Provider Unavailabl e Reason for Visit * Reason Onset Date Comments Chart Prep 03/24/2024 Encounter Details Date Type Department Care Team ([facility] st Contact Info) Description 03/24/[address] [facility] [address] [place] [address] Felicia Vu MA Chart Prep Social History [...] encounter Miscellaneous Notes * Telephone Encounter - Felicia Vu MA - 03/24/2024 10:53 AM EST [...]
--- OUTSIDE RECORDS SUMMARY | 2024-04-22 14:35 | XMS_ITS | Clinical Summary ---
Author Organization [employer] Address [address] [facility] 7t [place] [address] Care Team Providers Care Director Of Diversity And Inclusion Name Role Phone Valeri Villanueva [facility] Primary Care Provider [phone] Allergies No known active allergies Medications * [...] Description 04/01/2024 2:45 PM EST Office Visit [address] [address] Valeri Villanueva FNP Encounter for adult wellness visit (Primary Dx); Dietary counseling; Exercise counseling; Opioid abuse ([facility]); Edema of both feet; Anxiety and depression; Tobacco use disorder; Chronic venous stasis dermatitis of lower extremity 04/01/2024 Travel 03/24/[address] [address] Felicia Vu MA Chart Prep 03/20/2024 Patient Outreach [address] [address] Valeri Villanueva FNP Care Coordination (CHW outreach for SDOH PT-1 and food needs-referral completed /) 03/20/2024 Patient Outreach [address] [address] Valeri Villanueva FNP Pre-visit Planning (SDOH Screening positive and Tobacco screening positive) 03/19/[address] [address] Louis Posey MD New patient appt. 01/23/2024 3:40 PM EST Office Visit [facility] [address] [place] [address] Marika Harvey NP Venous insufficiency of lower extremity (Primary Dx) 01/23/[address] [facility] [address] [place] [address] Louis Posey MD from Last 3 Months [...] Health Maintenance Due Date Last Done Comments Family Planning (PISQ) 05/31/2003 Hepatitis A Vaccines (1 of 2 - [...] 5 Years) and At-Risk Patients (6 to 49) Years) (1 of 2 - PCV) 04/02/2025 Postponed from (Patient Refused) Lipid Panel 04/03/2029 04/03/2024 DTaP/Tdap/Td Vaccines (2 - T d or Tdap) 05/01/2033 05/01/2023 Zoster Vaccines (1 of 2) 2038 RSV Patients and Patients Aged 60 years or older (1 - 1-dose 75+ series) 05/31/2063 HIV Screening Completed 04/03/2024 Hepatitis C Screening Completed 04/03/2024 HIB Vaccines Aged Out No longer eligi [...] Procedure Name Priority Date/Time Associated Diagnosis Comments VASC US LOWER EXTREMITY VENOUS DUPLEX BILATERAL Routine 04/22/2024 1:31 PM EST BASIC METABOLIC PANEL Routine 04/03/2024 11:51 AM EST Encounter for adult wellness visit HEPATITIS B SURFACE ANTIGEN, EIA Routine 04/03/2024 11:51 AM EST Encounter for adult wellness visit HEPATITIS B CORE AB TOTAL Routine 04/03/2024 11:51 AM EST Encounter for adult wellness visit HEPATITIS B SURFACE ANTIBODY, QUALITATIVE Routine 04/03/2024 11:51 AM EST Encounter for adult wellness visit HIV 1/2 ANTIGEN/ANTIBODY, FOURTH GENERATION W/RFL Routine 04/03/2024 11:51 AM EST Encounter for adult wellness visit HEPATITIS C AB W/REFL TO HCV RNA, QN, PCR Routine 04/03/2024 11:51 AM EST Encounter for adult wellness visit LIPID PANEL, STANDARD Routine 04/03/2024 11:51 AM EST Encounter for adult wellness visit POCT GLYCATED HEMOGLOBIN, TOTAL Routine 04/01/2024 3:06 PM EST Encounter for adult wellness visit POCT GLUCOSE Routine 04/01/2024 3:05 PM EST Encounter for adult wellness visit from Last 3 Months Results * VASC US Lower Extremity Venous Duplex Bilateral (04/22/2024 1:31 PM EST) 04/22/2024 1:31 PM EST Narrative [facility] - 04/22/2024 2:09 PM EST ? [facility] ?[address] ?[place] [address] ? Ultrasound Report ? Signed ? Patient: Annabelle Chau ?MR#: [id number] ?? [id number] ? : 1990 ?Acct:[id number] ? Age/Sex: 33 / M ?ADM Date: 04/22/24 ? Loc: HO.US ? Attending Dr: Valeri FALL ? Ordering Physician: Valeri Villanueva ?? Date of Service: 04/22/24 ?? Procedure(s): US venous duplex LE BI ?? Accession Number(s): [id number] ? cc: Valeri Villanueva ? EXAMINATION: ?? US TRIPLEX LOWER EXTREMITY, BILATERAL ? CLINICAL INFORMATION: ?? Edema, lower extremities. ? COMPARISON: ?? None available. ? TECHNIQUE: ?? Color-flow triplex imaging with spectral analysis and compression ?? Doppler were performed on the bilateral lower extremities. ? FINDINGS: ?? Respiratory variation, normal compression and augmented flow are noted ?? throughout the bilateral lower extremities. The visualized common ?? femoral vein, superficial femoral vein, profunda femoral vein, ?? popliteal vein and midcalf peroneal and posterior tibial venous ?? segments show no evidence of deep venous thrombosis bilaterally. ? There is no Ferris's cyst. ?? Prominent lymph nodes in the inguinal regions. ?? Probable varices in the right calf. ? US/US venous duplex LE BI ?? IMPRESSION: ?? No acute deep venous thrombosis involving the bilateral lower ?? extremities. Negative DVT. ? Electronically signed by: ??German Liu MD ??04/22/2024 02:06 PM ?? EST RP ? Dictated By: ?German Ziegler MD ? Signed By: ?<Electronically signed by German Hammer MD in OV> ? 04/22/24 1406 ? DD/ 1331 ? TD/TT: 04/22/24 1400 ? Raschel Knitting Machine Operator: ? Procedure Note Donotuseinterpreter, Image - 04/22/[address] [address] Ultrasound Report Signed Patient: Annabelle ChauMR#: [id number] : 1990Acct:[id number] Age/Sex: 33 / MADM Date: 04/22/24 Loc: HO.US Attending Dr: Valeri FALL Ordering Physician: Valeri Villanueva Date of Service: 04/22/24 Procedure(s): US venous duplex LE BI Accession Number(s): [id number] cc: Valeri Villanueva EXAMINATION: US TRIPLEX LOWER EXTREMITY, BILATERAL CLINICAL INFORMATION: Edema, lower extremities. COMPARISON: None available. TECHNIQUE: Color-flow triplex imaging with spectral analysis and compression Doppler were performed on the bilateral lower extremities. FINDINGS: Respiratory variation, normal compression and augmented flow are noted throughout the bilateral lower extremities. The visualized common femoral vein, superficial femoral vein, profunda femoral vein, popliteal vein and midcalf peroneal and posterior tibial venous segments show no evidence of deep venous thrombosis bilaterally. There is no Ferris's cyst. Prominent lymph nodes in the inguinal regions. Probable varices in the right calf. US/US venous duplex LE BI IMPRESSION: No acute deep venous thrombosis involving the bilateral lower extremities. Negative DVT. Electronically signed by: German Liu MD 04/22/2024 02:06 PM [facility] Dictated By: German Ziegler MD Signed By: <Electronically signed by German Hammer MDin OV> 04/22/24 1406 DD/ 1331 TD/TT: 04/22/24 1400 Raschel Knitting Machine Operator: us Valeri Hinsono DECISION SUPPORT MANAGER CV VASCULAR PROCEDURES Final R esult Performing Organization Address [facility]/ZIP Co de Phone Number [facility] [address] [place] [phone] * Hepatitis C Antibody with Reflex to HCV, RNA, Quantitative, Real-Time PCR (04/03/2024 11:51 AM EST) Hepatitis C Antibody Nonreactive Nonreactive [facility] Comment:Antibodies to HCV no t detected; does not exclude early acuteHCV infection. Blood Venous blood specimen / Unknown 04/03/2024 11:51 AM EST 04/03/2024 1:29 PM EST us Valeri Hinsono DECISION SUPPORT MANAGER LAB BLOOD ORDERABLES Final Res ult Performing Organization Address [facility] Co de Phone Number [facility] [address] [place] [phone] * Hepatitis B surface antigen, EIA (04/03/2024 11:51 AM EST) Hepatitis B Surface Ag Negative Negative [facility] Blood Venous blood specimen / Unknown 04/03/2024 11:51 AM EST 04/03/2024 1:29 PM EST us Valeri Hinsono DECISION SUPPORT MANAGER LAB BLOOD ORDERABLES Final Res ult Performing Organization Address [facility] Co de Phone Number [facility] [address] [place] [phone] * Hepatitis B Core Antibody, Total (04/03/2024 11:51 AM EST) Hepatitis B Core Antibody Nonreactive Nonreactive [facility] Blood Venous blood specimen / Unknown 04/03/2024 11:51 AM EST 04/03/2024 1:29 PM EST us Valeri Sravano DECISION SUPPORT MANAGER LAB BLOOD ORDERABLES Final Res ult Performing Organization Address [facility] Co de Phone Number [facility] [address] [place] [address] [phone] * HIV-1/2 Antigen and Antibodies, Fourth Generation, with Reflexes (04/03/2024 11:51 AM EST) HIV AB/AG Nonreactive Nonreactive [facility] Comment:HIV-1 p24 Ag and/or HIV-1/HIV-2 Ab not detected.A test result that is nonreactive does not exclude thepossibility of exposure to or infection with HIV-1 and/orHIV-2. Nonreactive results in this assay for individualswith prior exposure to HIV-1 and/or HIV-2 may be due toantigen and antibody levels that are below the limit ofdetection of this assay.The [employer] HIV Ag/Ab Combo assay result andsupplemental assay results should be interpreted inconjunction with the patient's clinical presentation,history and other laboratory results. If the results areinconsistent with clinical evidence, additional testing issuggested to confirm the result. Blood Venous blood specimen / Unknown 04/03/2024 11:51 AM EST 04/03/2024 1:29 PM EST [employer] [facility] LAB BLOOD ORDERABLES Final Res ult Performing Organization Address [facility] Co de Phone Number [facility] [address] [place] [address] [phone] * Hepatitis B Surface Antibody, Qualitative (04/03/2024 11:51 AM EST) ~Hepatitis B Surface Antibody REACTIVE Nonreactive [facility] Comment:REACTIVE: > 11.99 mI U/mL Blood Venous blood specimen / Unknown 04/03/2024 11:51 AM EST 04/03/2024 1:29 PM EST [facility] BLOOD ORDERABLES Final Res ult Performing Organization Address City/[facility]/ZIP Co de Phone Number [facility] [address] [place] [address] [phone] * Lipid Panel, Standard (04/03/2024 11:51 AM EST) Triglycerides 57 <150 mg/dL [facility] Comment:Desirable Triglyceri de: less than 150 mg/dLBorderline High Triglyceride 150-199 mg/dLHigh Triglyceride: 200-499 mg/dLVery High Triglyceride: greater than or equal to 5OO mg/dL Cholesterol 158 <200 mg/dL [facility] Comment:Desirable Cholestero l: less than 200 mg/dLBorderline High Cholesterol: 200-239 mg/dLHigh Cholesterol: greater than 239 mg/dL LDL Cholesterol Calculated 98 <100 mg/dL [facility] Comment:Desirable LDL: less than 100 mg/dLNear Optimal/Above Optimal LDL: 110- 129 mg/dLBorderline High LDL: 130-159 mg/dLHigh LDL: 160-189 mg/dLVery High LDL: greater than or equal to 190 mg/dL HDL Cholesterol 49 >40 mg/dL [facility] Comment:Desirable HDL: great er than 40 mg/dL Note: This HDL assay may give artificially low results in patients with liver disease. Blood Venous blood specimen / Unknown 04/03/2024 11:51 AM EST 04/03/2024 1:29 PM EST us Valeri Villanueva DECISION SUPPORT MANAGER LAB BLOOD ORDERABLES Final Res ult Performing Organization Address City/[facility]/ZIP Co de Phone Number [facility] [address] [place] [address] [phone] * (ABNORMAL) Basic Metabolic Panel (04/03/2024 11:51 AM EST) Sodium 139 135 - 145 mmol/L [facility] Potassium 4.3 3.3 - 5.1 mmol/L [facility] Chloride 104 96 - 108 mmol/L [facility] Carbon Dioxide 30(H) 22 - 29 mmol/L [facility] Anion Gap 9(L) 12 - 20 [facility] Urea Nitrogen (BUN) 19(H) 9 - 16 mg/dL [facility] Creatinine, Serum 0.74 0.5 - 1.4 mg/dL [facility] Estimated Glomerular Filt Rate >60 [facility] Comment:Chronic Kidney Disea se: Estimated GFR < 60 mL/min/1.22u2Dksbhy Kidney Disease: Estimated GFR < 15 mL/min/1.73m2 Glucose 100 60 - 115 mg/dL [facility] Calcium 8.9 8.4 - 10.2 mg/dL [facility] Blood Venous blood specimen / Unknown 04/03/2024 11:51 AM EST 04/03/2024 1:29 PM EST [employer] [facility] LAB BLOOD ORDERABLES Final Res ult [facility] [address] [place] [phone] * POCT HGB A1C (04/01/2024 3:06 PM EST) Hemoglobin A1C 5.8 4.0 - 6.0 % QC Media Lot # [id number] Lot# Expiration Date , Blood 04/01/2024 3:06 PM EST Result [facility] Valeri [employer] DECISION SUPPORT MANAGER POINT OF CARE TEST ENTER/EDIT ORDERABLES Final Result * POCT Glucose (04/01/2024 3:05 PM EST) Glucose Blood, POC 96 60 - 200 mg/dL QC Media Lot # [id number] Lot# Expiration Date , Blood Capillary blood specimen / Unknown 04/01/2024 3:05 PM EST Valeri [employer] DECISION SUPPORT MANAGER POINT OF CARE TEST ENTER/EDIT ORDERABLES Final Result from Last 3 Months Insurance Karon Schuler [place] Karon Schuler [place] Karon Schuler [place] Care Teams Director Of Diversity And Inclusion Relationship Specialty Start Date End Date Valeri Villanueva FNP [address] [place] [phone] PCP - General Family Medicine 04/01/24
--- OUTSIDE RECORDS SUMMARY | 2024-04-22 14:35 | XMS_ITS | Encounter Summary ---
Author Organization [employer] Address [address] [place] [address] Care Team Providers Care Belt Back Operator Name Role Phone Valeri Villanueva [facility] Primary Care Provider [phone] Encounter Details Date Type Department Care Team [...] documented as of this encounter Care Teams Belt Back Operator Relationship Specialty Start Date End Date Valeri Villanueva FNP [address] [place] [phone] PCP - General Family Medicine 04/01/24 documented as of this encounter
--- OUTSIDE RECORDS SUMMARY | 2024-04-22 14:35 | XMS_ITS | Encounter Summary ---
Author Organization [employer] [facility] Address [address] [place] [address] 7t [place] [address] Care Team Providers Care Milk Sampler Name Role Phone Valeri Villanueva Primary Care Provider [phone] Reason for Referral * Imaging (Routine) - Closed Specialty Diagnoses / Procedures Referred By Cora mendoza Referred To Contact Cardiology Diagnoses Encounter for routine child health examination w/o abnormal findings Procedures Lower Extremity Venous Duplex Valeri Villanueva FNP [address] [place] [address] Phone: tel: fax: [address] Phone: tel: fax: Referral ID Status Reason Start Date Expiration Date V isits Requested Visits Authorized [id number] Closed Perform Procedure 04/01/2024 04/01/2025 1 1 Encounter Details Date Type Department Care Team (Late st Contact Info) Description 04/01/2024 2:45 PM EST Office Visit [facility] [address] [place], [place] [phone] Valeri Villanueva FNP [address], [place] [phone] Encounter for adult wellness visit (Primary Dx); [...] your housing situation today? I have facundo reese 03/20/[address] you li [...] about 18 years. Was seen in the [facility] for leg pain on 01/23/2024 after scratching [...] visit Dietary counseling Exercise counseling Opioid abuse ([facility]) Edema of both feet Anxiety and depression [...] day and increase as tolerated Opioid abuse ([facility]) Current Assessment & Plan Abuse opiods OBAT [...] with high salt Moisturize your skin [facility] WARP PICKER Attestation WARP PICKER Resident Attestation: Patient was seen and evaluated by Valeri FALL , in collaboration with Kirstin Rogers MD who has reviewed my assessment and plan. I, Kirstin Rogers MD , have reviewed the resident's note and agree with the assessment &plan of care as documented above. documented in this encounter Miscellaneous Notes * Assessment & Plan Note - EUFEMIA Jain - 04/02/2024 1:29 AM ESTAssociated Problem(s): Anxiety and depression Patient Health Questionnaire-9 Score: 4 (04/01/2024 3:02 PM) MARTA-7 Total Score: 15 (04/01/2024 3:57 PM) Patient reports anxiety and trauma Patient education on resources agreed to consult. Decline further consults with BH * Assessment & Plan Note - EUFEMIA [...] Encounter for adult wellness visit Ordered: 04/01/2024 documented as of this encounter Procedures Procedure Name Priority Date/Time Associated Diagnosis Comments HEPATITIS C AB W/REFL TO HCV RNA, [...] AM EST Encounter for adult wellness visit BASIC METABOLIC PANEL Routine 04/03/2024 11:51 AM EST Encounter for adult wellness visit POCT GLYCATED HEMOGLOBIN, TOTAL Routine 04/01/2024 3:06 PM EST Encounter for adult wellness visit POCT GLUCOSE Routine 04/01/2024 3:05 PM EST Encounter for adult wellness visit documented in this encounter Results * (ABNORMAL) Basic Metabolic Panel (04/03/2024 11:51 AM EST) Sodium 139 135 - 145 mmol/L [facility] Potassium 4.3 3.3 - 5.1 mmol/L [facility] Chloride 104 96 - 108 mmol/L [facility] Carbon Dioxide 30(H) 22 - 29 mmol/L [facility] Anion Gap 9(L) 12 - 20 [facility] Urea Nitrogen (BUN) 19(H) 9 - 16 mg/dL [facility] Creatinine, Serum 0.74 0.5 - 1.4 mg/dL [facility] Estimated Glomerular Filt Rate >60 [facility] Comment:Chronic Kidney Disea se: Estimated GFR < 60 mL/min/1.51u9Ppzqmr Kidney Disease: Estimated GFR < 15 mL/min/1.73m2 Glucose 100 60 - 115 mg/dL [facility] Calcium 8.9 8.4 - 10.2 mg/dL [facility] Blood Venous blood specimen / Unknown 04/03/2024 11:51 AM EST 04/03/2024 1:29 PM EST us Valeri Villanueva DNA ANALYST LAB BLOOD ORDERABLES Final Res ult [facility] [address] [place] [phone] * Hepatitis B surface antigen, EIA (04/03/2024 11:51 AM EST) Hepatitis B Surface Ag Negative Negative [facility] Blood Venous blood specimen / Unknown 04/03/2024 11:51 AM EST 04/03/2024 1:29 PM EST [facility] BLOOD ORDERABLES Final Res ult Performing Organization Address [facility] Co de Phone Number [facility] [address] [place] [phone] * Hepatitis B Core Antibody, Total (04/03/2024 11:51 AM EST) Hepatitis B Core Antibody Nonreactive Nonreactive [facility] Blood Venous blood specimen / Unknown 04/03/2024 11:51 AM EST 04/03/2024 1:29 PM EST Valeri [facility] BLOOD ORDERABLES Final Res ult Performing Organization Address [facility] Co de Phone Number [facility] [address] [place] [phone] * Hepatitis B Surface Antibody, Qualitative (04/03/2024 11:51 AM EST) Pathologist [facility] ~Hepatitis B Surface Antibody REACTIVE Nonreactive [facility] Comment:REACTIVE: > 11.99 mI U/mL Blood Venous blood specimen / Unknown 04/03/2024 11:51 AM EST 04/03/2024 1:29 PM EST [facility] Final Res ult Performing Organization Address [facility] de Phone Number [facility] [address] [place] [phone] * HIV-1/2 Antigen and Antibodies, Fourth Generation, with Reflexes (04/03/2024 11:51 AM EST) HIV AB/AG Nonreactive Nonreactive [facility] Comment:HIV-1 p24 Ag and/or HIV-1/HIV-2 Ab not detected.A test result that is nonreactive does not exclude thepossibility of exposure to or infection with HIV-1 and/orHIV-2. Nonreactive results in this assay for individualswith prior exposure to HIV-1 and/or HIV-2 may be due toantigen and antibody levels that are below the limit ofdetection of this assay.The [employer] HIV Ag/Ab Combo assay result andsupplemental assay results should be interpreted inconjunction with the patient's clinical presentation,history and other laboratory results. If the results areinconsistent with clinical evidence, additional testing issuggested to confirm the result. Blood Venous blood specimen / Unknown 04/03/2024 11:51 AM EST 04/03/2024 1:29 PM EST [facility] LAB BLOOD ORDERABLES Final Res ult Performing Organization Address [facility]/ZIP Co de Phone Number [facility] [address] [place] [phone] * Hepatitis C Antibody with Reflex to HCV, RNA, Quantitative, Real-Time PCR (04/03/2024 11:51 AM EST) Pathologist [facility] Hepatitis C Antibody Nonreactive Nonreactive [facility] Comment:Antibodies to HCV no t detected; does not exclude early acuteHCV infection. Blood Venous blood specimen / Unknown 04/03/2024 11:51 AM EST 04/03/2024 1:29 PM EST [facility] LAB BLOOD ORDERABLES Final Res ult Performing Organization Address [facility]/ZIP Co de Phone Number [facility] [address] [place] [phone] * Lipid Panel, Standard (04/03/2024 11:51 AM EST) Triglycerides 57 <150 mg/dL [facility] Comment:Desirable Triglyceri de: less than 150 mg/dLBorderline High Triglyceride 150-199 mg/dLHigh Triglyceride: 200-499 mg/dLVery High Triglyceride: greater than or equal to 5OO mg/dL Cholesterol 158 <200 mg/dL [facility] Comment:Desirable Cholestero l: less than 200 mg/dLBorderline High Cholesterol: 200-239 mg/dLHigh Cholesterol: greater than 239 mg/dL LDL Cholesterol Calculated 98 <100 mg/dL [facility] Comment:Desirable LDL: less than 100 mg/dLNear Optimal/Above Optimal LDL: 110- 129 mg/dLBorderline High LDL: 130-159 mg/dLHigh LDL: 160-189 mg/dLVery High LDL: greater than or equal to 190 mg/dL HDL Cholesterol 49 >40 mg/dL [facility] Comment:Desirable HDL: great er than 40 mg/dL Note: This HDL assay may give artificially low results in patients with liver disease. Blood Venous blood specimen / Unknown 04/03/2024 11:51 AM EST 04/03/2024 1:29 PM EST [facility] LAB BLOOD ORDERABLES Final Res ult [facility] [address] [place], [place] [phone] * POCT HGB A1C (04/01/2024 3:06 PM EST) Hemoglobin A1C 5.8 4.0 - 6.0 % QC Media Lot # [id number] Lot# Expiration Date , Blood 04/01/2024 3:06 PM EST [email or web address] [facility] POINT OF CARE TEST ENTER/EDIT ORDERABLES Final Result * POCT Glucose (04/01/2024 3:05 PM EST) Glucose Blood, POC 96 60 - 200 mg/dL QC Media Lot # [id number] Lot# Expiration Date ,025 Blood Capillary blood specimen / Unknown 04/01/2024 3:05 PM EST Valeri FALL POINT OF CARE TEST ENTER/EDIT ORDERABLES Final Result documented in this encounter Visit Diagnoses Diagnosis Encounter for adult wellness visit- Primary Dietary counseling Dietary surveillance and counseling Exercise counseling Opioid abuse ([facility]) Nondependent opioid abuse, unspecified Edema of both feet Anxiety and depression Tobacco use disorder Chronic venous stasis dermatitis of lower extremity documented in this encounter Additional Health Concerns Assessment Noted Time PHQ-9 Depression Total Score: 4 04/01/19 3:02 PM EST documented as of this encounter Care Teams Milk Sampler Relationship Specialty Start Date End Date Valeri Villanueva FNP [address] [place] [phone] PCP - General Family Medicine 04/01/24 documented as of this encounter
== END 2024-04-22 13:16 | disposition home or self-care (01) ==
LOC: HO.US 13:15
PROVIDERS: PCP Nurse Practitioner Family; Visit Provider Nurse Practitioner Family
DX: R60.0 Localized edema (principal); I87.2 Venous insufficiency (chronic) (peripheral)
CPT/HCPCS: 93970

== ENCOUNTER → 2024-04-22 13:18 | Outpatient (BNV) | payer MEDICAID, SELFPAY | PROVIDERS: PCP Nurse Practitioner Family; Visit Provider Radiology Diagnostic Radiology | DX: R60.0 Localized edema (principal) | CPT/HCPCS: 93970 ==

== ENCOUNTER 2024-04-28 11:29 | Outpatient (AMB) | payer MEDICAID, SELFPAY ==
[2024-04-28 11:36] VITALS: BMI 25.1
--- NOTE | 2024-04-28 11:36 | A.OFFVIS_ITS ---
Vital Signs 04/28/24 11:36 Height 6 ft 1 in Weight 190 lb BMI 25.1 Intake Visit Reasons: [employer] ref. for bleeding VV/LE discoloration (PVD) Intake Note: [employer]/ bilateral LE swelling x 5 yrs. Right LE worse than Left LE. Worse when on his feet. Pt states he had an episode of bleeding VV. Also has discoloration. Pt is wearing compression socks. Solderer Dipper Required: No Accompanied by: Self / Same As Patient Allergies No Known Allergies [No Known Allergies*] Allergy (Unverified 04/28/24 11:41) HPI HPI [employer] ref. for bleeding VV/LE discoloration (PVD): Details: 33-year-old male patient presents for painful varicose veins. Complaints include pain over varicosities, swelling of lower extremities, cramping, fatigue, and heaviness of the lower extremities. 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 It is noted more so in right leg. He reports that he had a nonhealing blister that was present for nearly 3- 4 months on the right calf. It had gone on to heal while he was incarcerated. He smokes about 5 cigarettes a day. He is a nondiabetic. Patient denies any previous venous surgery or injections. Patient denies any history of DVT/ PE. He would undergone ultrasound on 04/22/2024 and was negative for DVT. Patient denies any history of phlebitis. Trial of compression includes - [id number] They now present for vascular evaluation regarding their varicose veins. [facility] Medical History No known health problems Social History (Updated 04/28/24 @ 11:43 by ARAM Del Toro) Cigarettes Per Day: 3 Review of Systems Const Reports as per HPI ENT Reports no additional complaints Card Denies chest pain, Denies chest pain at rest and Denies chest pain with activity Resp Denies chest congestion and Denies cough GI Reports no additional complaints Musc Details: pain over varicosities, aching of lower extremities, swelling, cramping, heaviness and tiredness, itching Denies abnormal gait Skin/Breast Reports pruritus and Denies wounds Neuro Reports no additional complaints and Denies abnormal gait Psych Denies no additional complaints Physical Exam Vital Signs: BMI result Body Mass Index 25.1 Const General: cooperative, healthy appearing and comfortable Orientation/consciousness: oriented to person, oriented to place and oriented to time Neck Carotids: no bruits Chest Chest palpation & inspection: normal inspection of the chest and normal palpation of entire chest wall Resp Effort & Inspection: normal respiratory effort and able to speak in complete sentences Cardio Rate: regular rate Heart sounds: S1 normal heart sound present and S2 normal heart sound present Peripheral pulses: Peripheral pulses 2+ throughout GI Inspection: Yes normal to inspection Skin Other: +2 edema, right greater than left CEAP Classification C5 - evidence of healed ulceration and severe discoloration of bilateral calfs. Ep - Etiology Primary As - superficial veins P - reflux General skin exam: dry skin Neuro General: oriented to person, oriented to place and oriented to time Extrem Right lower extremity: full ROM, normal capillary refill and edema Left lower extremity: full ROM, normal capillary refill and edema Psych Mental Status: mental status grossly normal Assessment & Plan Assessment & Plan (1) Varicose veins of right lower extremity with inflammation: Code(s): I83.11 - Varicose veins of right lower extremity with inflammation Category: Medical Plan: In short, the patient has evidence of venous insufficiency. I have discussed the pathophysiology with the patient. In addition I have provided informational material regarding venous disease to the patient. We have discussed conservative measures including compression, elevation, and exercise. I have also provided a handout regarding appropriate use of compression stockings and where to purchase good compression stockings as well. I have taken the liberty of ordering venous insufficiency testing with the patient. They will follow up with me after testing. The patient had an opportunity to ask questions regarding the treatment plan. All questions were answered. Imaging studies, laboratory studies and physical exam results were discussed and reviewed in detail. No major barriers to understanding were identified. The patient expressed understanding and agreement with the above treatment plan. The patient is aware they should contact our office by phone for worsening of the current condition or the appearance of new symptoms. Thank you for allowing me to participate in the vascular care of this patient. If you have any questions or concerns regarding the treatment for the above condition please do not hesitate to contact me. The office telephone contact is [phone]. This note is constructed using voice recognition software. While every ef fort has been made to ensure accuracy, marketing traffic coordinator errors may have been included. Thank you for allowing me to participate in the care of your patient. Yours sincerely, Jose R Akers MD, FACS, R.P.V.I. Orders: Orders US venous duplex LE BI 1 Week I83.11 - Varicose veins of right lower extremity with inflammation Coding Level of Care Code New Pt Level 4 (15220) Diagnoses Varicose veins of right lower extremity with inflammation I83.11
== END 2024-04-28 11:55 | disposition home or self-care (01) ==
PROVIDERS: PCP Nurse Practitioner Family; Visit Provider Surgery Vascular Surgery
DX: I83.11 Varicose veins of right lower extremity with inflammation (principal)
CPT/HCPCS: 99204

== ENCOUNTER → 2024-04-28 11:29 | Outpatient (BNVA) | payer MEDICAID, SELFPAY | PROVIDERS: PCP Nurse Practitioner Family; Visit Provider Surgery Vascular Surgery | DX: I83.11 Varicose veins of right lower extremity with inflammation (principal); I83.811 Varicose veins of right lower extremity with pain; F17.210 Nicotine dependence, cigarettes, uncomplicated | CPT/HCPCS: 99202 ==

== ENCOUNTER 2024-06-01 13:17 | Outpatient (REF) | payer MEDICAID, SELFPAY ==
--- NOTE | ~2024-06-01 | US_ITS ---
EXAMINATION: US LOWER EXTREMITY VENOUS (REFLUX EXAM), BILATERAL CLINICAL INFORMATION: Varices. COMPARISON: DVT ultrasound dated April 22, 2024. TECHNIQUE: Color flow triplex imaging and compression Doppler was performed to evaluate both the deep and the superficial systems bilaterally. To evaluate the superficial system, the examination was performed in the upright position. Color-flow Doppler ultrasound and compression ultrasound were utilized. In addition, maneuvers were utilized to demonstrate reflux. FINDINGS: 1. DEEP VENOUS ULTRASOUND OF THE RIGHT LOWER EXTREMITY: Common Femoral Vein: Compressible, normal respiratory variation and augmented flow. Femoral Vein: Compressible, normal color flow and augmentation. Popliteal Vein: Compressible, normal augmentation. Deep Reflux: There is no evidence of reflux in the deep system in either the common femoral vein, superficial femoral or the popliteal vein. There is no evidence of a Ferris's cyst. 2. SUPERFICIAL ULTRASOUND WITH DOPPLER OF RIGHT LOWER EXTREMITY: GREAT SAPHENOUS VEIN: Saphenofemoral Junction: 0.8 cm; Reflux: 0 ms Proximal Thigh: 0.6 cm; Reflux: 0 ms Mid Thigh: 0.4 cm; Reflux: 0 ms Distal Thigh: 0.5 cm; Reflux: 0 ms At Knee: 0.3 cm; Reflux: 0 ms Proximal Calf: 0.4 cm; Reflux: 0 ms Mid Calf: 0.3 cm; Reflux: 1244 ms Distal Calf: 0.3 cm; Reflux: 812 ms DUPLICATED MEDIAL GREAT SAPHENOUS VEIN: Diameter: None imaged Reflux: NA DUPLICATED LATERAL GREAT SAPHENOUS VEIN: Diameter: None imaged Reflux: NA SMALL SAPHENOUS VEIN: Saphenopopliteal Junction: 0.3 cm; Reflux: 0 ms Proximal: 0.4 cm; Reflux: 0 ms Distal: 0.4 cm; Reflux: 0 ms VEIN OF GIACOMINI: Size: 0.2 cm. Reflux: NA PERFORATORS: Location: Multiple perforators involving the small saphenous vein throughout the calf, mid and distal thigh. Size: 0.2-0.5 cm. Reflux: NA VARICOSITIES: Location: Multiple varices in the mid distal thigh and through the calf. Size: 0.3 cm. Reflux: NA 3. DEEP VENOUS ULTRASOUND OF THE LEFT LOWER EXTREMITY: Common Femoral Vein: Compressible, normal respiratory variation and augmented flow. Femoral Vein: Compressible, normal color flow and augmentation. Popliteal Vein: Compressible, normal augmentation. Deep Reflux: There is no evidence of reflux in the deep system in either the common femoral vein, superficial femoral or the popliteal vein. There is no evidence of a Ferris's cyst. 4. SUPERFICIAL ULTRASOUND WITH DOPPLER OF LEFT LOWER EXTREMITY: GREAT SAPHENOUS VEIN: Saphenofemoral Junction: 0.7 cm; Reflux: 0 ms Proximal Thigh: 0.3 cm; Reflux: 0 ms Mid Thigh: 0.2 cm; Reflux: 0 ms Distal Thigh: 0.2 cm; Reflux: 0 ms At Knee: 0.2 cm; Reflux: 0 ms Proximal Calf: 0.2 cm; Reflux: 0 ms Mid Calf: 0.3 cm; Reflux: 0 ms Distal Calf: 0.3 cm; Reflux: 0 ms DUPLICATED MEDIAL GREAT SAPHENOUS VEIN: Diameter: None imaged Reflux: NA DUPLICATED LATERAL GREAT SAPHENOUS VEIN: Diameter: None imaged. Reflux: NA SMALL SAPHENOUS VEIN: Saphenopopliteal Junction: 0.3 cm; Reflux: 0 ms Proximal: 0.5 cm; Reflux: 0 ms Distal: 0.4 cm; Reflux: 0 ms VEIN OF GIACOMINI: Size: NA Reflux: NA PERFORATORS: Location: Multiple varices in the small saphenous vein. Size: 0.2-0.5 cm. Reflux: NA VARICOSITIES: Location: Small saphenous vein in the knee and distal calf. Size: 0.3 cm. Reflux: 1728 ms in the knee small saphenous vein and 1480 ms in the mid calf. US/US venous duplex LE BI IMPRESSION: Right: Venous insufficiency, great saphenous vein, mid calf. Perforators and varices without reflux. Left: No venous insufficiency. Varices without reflux in the mid small saphenous vein and midcalf. Electronically signed by: German Liu MD 06/02/2024 03:23 PM EDT
== END 2024-06-01 13:18 | disposition home or self-care (01) ==
LOC: HO.US 13:17
PROVIDERS: PCP Nurse Practitioner Family; Visit Provider Surgery Vascular Surgery
DX: I83.11 Varicose veins of right lower extremity with inflammation (principal)
CPT/HCPCS: 93970

== ENCOUNTER → 2024-06-01 13:22 | Outpatient (BNV) | payer MEDICAID, SELFPAY | PROVIDERS: PCP Nurse Practitioner Family; Visit Provider Radiology Diagnostic Radiology | DX: I87.2 Venous insufficiency (chronic) (peripheral) (principal); I83.92 Asymptomatic varicose veins of left lower extremity | CPT/HCPCS: 93970 ==

== ENCOUNTER 2024-06-09 15:22 | Outpatient (AMB) | payer MEDICAID, SELFPAY ==
--- NOTE | 2024-06-09 15:17 | MHC.OFFVIS ---
Intake Visit Reasons: follow up s/p US 06/01/24 Intake Note: Patient presents for follow up US. Performed on 06/01/24. No complaints. Accompanied by: Self / Same As Patient Allergies No Known Allergies [No Known Allergies*] Allergy (Verified 06/09/24 15:18) [facility] follow up s/p US 06/01/24: Details: The patient is a 34-year-old male presenting for follow-up regarding venous insufficiency and related symptoms of leg swelling and discoloration. He reports that his right leg recently experienced swelling that has decreased after two days. A prior ultrasound examination did not show any abnormalities in venous structures. Despite the negative test results, he experiences discoloration on his legs, with no history of similar issues such as blood clots, and discloses no family history that might suggest a hereditary basis for this condition. 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 He now presents for follow-up with venous insufficiency testing [facility] Medical History No known health problems Social History Cigarettes Per Day: 3 Review of Systems Const Reports as per HPI ENT Reports no additional complaints Card Denies chest pain, Denies chest pain at rest and Denies chest pain with activity Resp Denies chest congestion and Denies cough GI Reports no additional complaints Musc Details: pain over varicosities, aching of lower extremities, swelling, cramping, heaviness and tiredness, itching Denies abnormal gait Skin/Breast Reports pruritus and Denies wounds Neuro Reports no additional complaints and Denies abnormal gait Psych Denies no additional complaints Physical Exam Const General: cooperative, healthy appearing and comfortable Orientation/consciousness: oriented to person, oriented to place and oriented to time Neck Carotids: no bruits Chest Chest palpation & inspection: normal inspection of the chest and normal palpation of entire chest wall Resp Effort & Inspection: normal respiratory effort and able to speak in complete sentences Cardio Rate: regular rate Heart sounds: S1 normal heart sound present and S2 normal heart sound present Peripheral pulses: Peripheral pulses 2+ throughout GI Inspection: Yes normal to inspection Skin Other: +2 edema, significant skin discoloration bilateral calf CEAP Classification C4 - skin color changes Ep - Etiology Primary As - superficial veins P - reflux General skin exam: dry skin Neuro General: oriented to person, oriented to place and oriented to time Extrem Right lower extremity: full ROM, normal capillary refill and edema Left lower extremity: full ROM, normal capillary refill and edema Psych Mental Status: mental status grossly normal Results Reviewed Results Reviewed: Brief summary of venous insufficiency testing is as follows: right great saphenous vein: negative right small saphenous vein: negative right accessory vein: none present left great saphenous vein: negative left small saphenous vein: negative left accessory vein: none present Please note there is no evidence of any venous aneurysms or significant tortuosity Assessment & Plan Assessment & Plan (1) Varicose veins of right lower extremity with inflammation: Code(s): I83.11 - Varicose veins of right lower extremity with inflammation Category: Medical Plan: I discussed with the patient the findings of the previously normal venous ultrasound in the context of his current symptoms of leg swelling and discoloration. Given the inconsistency of findings with typical venous insufficiency, I recommended a CT scan of the abdomen using contrast to allow comprehensive visualization of the central vascular structures. I explained the purpose of the contrast dye in improving visuals of blood vessels to rule out any central venous occlusion stenosis.. I outlined the required blood tests to assess kidney function and the importance of the CT scan for diagnostic clarity. The patient understood and agreed to proceed with this plan. He will follow up with us after testing. Thank you for allowing us to assist in his care. There are any questions or concerns please do not hesitate to contact us. Orders: Orders Blood Urea Nitrogen Today I83.11 - Varicose veins of right lower extremity with inflammation CT angio abdomen pelvis 1 Week I83.11 - Varicose veins of right lower extremity with inflammation Creatinine Today I83.11 - Varicose veins of right lower extremity with inflammation Medications: Discontinued furosemide (Lasix) Discontinued Reason: Patient no longer taking 20 mg PO DAILY 30 tabs 0RF furosemide Discontinued Reason: Patient no longer taking 20 mg PO DAILY 20 tabs 0RF Patient Instructions: - Schedule a CT scan of the abdomen with contrast as recommended. - Complete blood tests as directed before the CT scan. - Monitor legs for further changes in swelling or discoloration. - Follow-up with any acute changes or if concerns arise. Coding Level of Care Code Est Pt Level 4 (95563) Complex EM visit Add On G2211 Diagnoses Varicose veins of right lower extremity with inflammation I83.11
--- OUTSIDE RECORDS SUMMARY | 2024-06-09 18:15 | XMS_ITS | Clinical Summary ---
Author Organization [employer] Address [address] [facility] [address] [place] [address] Care Team Providers Care Personal Financial Representative Name Role Phone Valeri Villanueva [facility] Primary Care Provider [phone] Allergies No known active allergies Medications * [...] organization. Date Type Department Care Team Description 06/01/2024 Orders Only [facility] External Provider, [facility] 05/22/2024 Population Health Risk Score [facility] () Department [address] [place] [phone] Provider, Population Health Generic 04/01/2024 2:45 PM EST Office Visit [address] [address] Valeri Villanueva FNP Encounter for adult wellness visit (Primary Dx); Dietary counseling; Exercise counseling; Opioid abuse (CMS/[facility]); Edema of both feet; Anxiety and depression; Tobacco use disorder; Chronic venous stasis dermatitis of lower extremity 04/01/2024 Travel 03/24/[address] [facility] [address] [place] [phone] Felicia Vu MA Chart Prep 03/20/2024 Patient Outreach [address] [address] Valeri Villanueva FNP Care Coordination (CHW outreach for SDOH PT-1 and food needs-referral completed /) 03/20/2024 Patient Outreach [address] [address] Valeri Villanueva FNP Pre-visit Planning (SDOH Screening positive and Tobacco screening positive) 03/19/[address] [facility] [address] [facility] [place] [facility] [place] [address] Louis Posey MD New patient appt. from Last 3 Months Immunizations Name Administration [...] Done Comments Family Planning (PISQ) 05/31/2003 Hepatitis B Vaccines (1 of 3 - 19+ 3-dose series) 05/31/2007 COVID-19 Vaccine (2023-2 5 season) 2023 Influenza Vaccine (#1) 2024 [...] on patient's age to complete this topic Hepatitis A Vaccines Aged Out No long er eligible based on patient's age to complete [...] Procedure Name Priority Date/Time Associated Diagnosis Comments [facility] LOWER EXTREMITY VENOUS DUPLEX BILATERAL Routine 06/01/2024 1:31 PM EDT [facility] LOWER EXTREMITY VENOUS DUPLEX BILATERAL Routine 04/22/2024 [...] VASC US Lower Extremity Venous Duplex Bilateral (06/01/2024 1:31 PM EDT) Only the most recent of2 resultswithin the time period is included. 06/01/2024 1:31 PM EDT Narrative [facility] - 06/02/2024 3:28 PM EDT ? [facility] ?[address] ?[place] [address] ? Ultrasound Report ? Signed ? Patient: Annabelle Chau ?MR#: [id number] ?? [id number] : 1990 ?Acct:[id number] ? Age/Sex: 34 / M ?ADM Date: 06/01/24 ? Loc: HO.US ? Attending Dr: Jose R Akers MD ? Ordering Physician: Jose R Akers MD ?? Date of Service: 06/01/24 ?? Procedure(s): US venous duplex LE BI ?? Accession Number(s): [id number] ? cc: Jose R Akers MD; Valeri Villanueva ? EXAMINATION: ?? US LOWER EXTREMITY VENOUS (REFLUX EXAM), BILATERAL ? CLINICAL INFORMATION: ?? Varices. ? COMPARISON: ?? DVT ultrasound dated April 22, 2024. ? TECHNIQUE: ?? Color flow triplex imaging and compression Doppler was performed to ?? evaluate both the deep and the superficial systems bilaterally. To ?? evaluate the superficial system, the examination was performed in the ?? upright position. Color-flow Doppler ultrasound and compression ?? ultrasound were utilized. In addition, maneuvers were utilized to ?? demonstrate reflux. ? FINDINGS: ? 1. DEEP VENOUS ULTRASOUND OF THE RIGHT LOWER EXTREMITY: ?? Common Femoral Vein: Compressible, normal respiratory variation and ?? augmented flow. ? Femoral Vein: Compressible, normal color flow and augmentation. ?? Popliteal Vein: Compressible, normal augmentation. ? Deep Reflux: There is no evidence of reflux in the deep system in ?? either the common femoral vein, superficial femoral or the popliteal ?? vein. ? There is no evidence of a Ferris's cyst. ? 2. SUPERFICIAL ULTRASOUND WITH DOPPLER OF RIGHT LOWER EXTREMITY: ? GREAT SAPHENOUS VEIN: ?? Saphenofemoral Junction: 0.8 cm; Reflux: 0 ms ?? Proximal Thigh: 0.6 cm; Reflux: 0 ms ?? Mid Thigh: 0.4 cm; Reflux: 0 ms ?? Distal Thigh: 0.5 cm; Reflux: 0 ms ?? At Knee: 0.3 cm; Reflux: 0 ms ?? Proximal Calf: 0.4 cm; Reflux: 0 ms ?? Mid Calf: 0.3 cm; Reflux: 1244 ms ?? Distal Calf: 0.3 cm; Reflux: 812 ms ? DUPLICATED MEDIAL GREAT SAPHENOUS VEIN: ?? Diameter: None imaged ?? Reflux: NA ? DUPLICATED LATERAL GREAT SAPHENOUS VEIN: ?? Diameter: None imaged ?? Reflux: NA ? SMALL SAPHENOUS VEIN: ?? Saphenopopliteal Junction: 0.3 cm; Reflux: 0 ms ?? Proximal: 0.4 cm; Reflux: 0 ms ?? Distal: 0.4 cm; Reflux: 0 ms ? VEIN OF GIACOMINI: ?? Size: 0.2 cm. ?? Reflux: NA ? PERFORATORS: ?? Location: Multiple perforators involving the small saphenous vein ?? throughout the calf, mid and distal thigh. ?? Size: 0.2-0.5 cm. ?? Reflux: NA ? VARICOSITIES: ?? Location: Multiple varices in the mid distal thigh and through the calf. ?? Size: 0.3 cm. ?? Reflux: NA ? 3. DEEP VENOUS ULTRASOUND OF THE LEFT LOWER EXTREMITY: ?? Common Femoral Vein: Compressible, normal respiratory variation and ?? augmented flow. ? Femoral Vein: Compressible, normal color flow and augmentation. ?? Popliteal Vein: Compressible, normal augmentation. ? Deep Reflux: There is no evidence of reflux in the deep system in ?? either the common femoral vein, superficial femoral or the popliteal ?? vein. ? There is no evidence of a Ferris's cyst. ? 4. SUPERFICIAL ULTRASOUND WITH DOPPLER OF LEFT LOWER EXTREMITY: ? GREAT SAPHENOUS VEIN: ?? Saphenofemoral Junction: 0.7 cm; Reflux: 0 ms ?? Proximal Thigh: 0.3 cm; Reflux: 0 ms ?? Mid Thigh: 0.2 cm; Reflux: 0 ms ?? Distal Thigh: 0.2 cm; Reflux: 0 ms ?? At Knee: 0.2 cm; Reflux: 0 ms ?? Proximal Calf: 0.2 cm; Reflux: 0 ms ?? Mid Calf: 0.3 cm; Reflux: 0 ms ?? Distal Calf: 0.3 cm; Reflux: 0 ms ? DUPLICATED MEDIAL GREAT SAPHENOUS VEIN: ?? Diameter: None imaged ?? Reflux: NA ? DUPLICATED LATERAL GREAT SAPHENOUS VEIN: ?? Diameter: None imaged. ?? Reflux: NA ? SMALL SAPHENOUS VEIN: ?? Saphenopopliteal Junction: 0.3 cm; Reflux: 0 ms ?? Proximal: 0.5 cm; Reflux: 0 ms ?? Distal: 0.4 cm; Reflux: 0 ms ? VEIN OF GIACOMINI: ?? Size: NA ?? Reflux: NA ? PERFORATORS: ?? Location: Multiple varices in the small saphenous vein. ?? Size: 0.2-0.5 cm. ?? Reflux: NA ? VARICOSITIES: ?? Location: Small saphenous vein in the knee and distal calf. ?? Size: 0.3 cm. ?? Reflux: 1728 ms in the knee small saphenous vein and 1480 ms in the mid ?? calf. ? US/US venous duplex LE BI ?? IMPRESSION: ?? Right: Venous insufficiency, great saphenous vein, mid calf. ?? Perforators and varices without reflux. ? Left: No venous insufficiency. ?? Varices without reflux in the mid small saphenous vein and midcalf. ? Electronically signed by: ??German Liu MD ??06/02/2024 03:23 PM ?? EDT RP ? Dictated By: ?German Ziegler MD ? Signed By: ?<Electronically signed by German Hammer MD in OV> ? 06/02/24 1523 ? DD/ 1331 ? TD/TT: 06/01/24 1411 ? Lands Resource Manager: ? Procedure Note Donotuseinterpreter, Image - 06/02/[address] [address] Ultrasound Report Signed Patient: Annabelle ChauMR#: [id number] : 1990Acct:[id number] Age/Sex: 34 / MADM Date: 06/01/24 Loc: HO.US Attending Dr: Jose R Akers MD Ordering Physician: Jose R Akers MD Date of Service: 06/01/24 Procedure(s): US venous duplex LE BI Accession Number(s): [id number] cc: Jose R Akers MD; Valeri Villanueva [facility] EXAMINATION: US LOWER EXTREMITY VENOUS (REFLUX EXAM), BILATERAL CLINICAL INFORMATION: Varices. COMPARISON: DVT ultrasound dated April 22, 2024. TECHNIQUE: Color flow triplex imaging and compression Doppler was performed to evaluate both the deep and the superficial systems bilaterally. To evaluate the superficial system, the examination was performed in the upright position. Color-flow Doppler ultrasound and compression ultrasound were utilized. In addition, maneuvers were utilized to demonstrate reflux. FINDINGS: 1. DEEP VENOUS ULTRASOUND OF THE RIGHT LOWER EXTREMITY: Common Femoral Vein: Compressible, normal respiratory variation and augmented flow. Femoral Vein: Compressible, normal color flow and augmentation. Popliteal Vein: Compressible, normal augmentation. Deep Reflux: There is no evidence of reflux in the deep system in either the common femoral vein, superficial femoral or the popliteal vein. There is no evidence of a Ferris's cyst. 2. SUPERFICIAL ULTRASOUND WITH DOPPLER OF RIGHT LOWER EXTREMITY: GREAT SAPHENOUS VEIN: Saphenofemoral Junction: 0.8 cm; Reflux: 0 ms Proximal Thigh: 0.6 cm; Reflux: 0 ms Mid Thigh: 0.4 cm; Reflux: 0 ms Distal Thigh: 0.5 cm; Reflux: 0 ms At Knee: 0.3 cm; Reflux: 0 ms Proximal Calf: 0.4 cm; Reflux: 0 ms Mid Calf: 0.3 cm; Reflux: 1244 ms Distal Calf: 0.3 cm; Reflux: 812 ms DUPLICATED MEDIAL GREAT SAPHENOUS VEIN: Diameter: None imaged Reflux: NA DUPLICATED LATERAL GREAT SAPHENOUS VEIN: Diameter: None imaged Reflux: NA SMALL SAPHENOUS VEIN: Saphenopopliteal Junction: 0.3 cm; Reflux: 0 ms Proximal: 0.4 cm; Reflux: 0 ms Distal: 0.4 cm; Reflux: 0 ms VEIN OF GIACOMINI: Size: 0.2 cm. Reflux: NA PERFORATORS: Location: Multiple perforators involving the small saphenous vein throughout the calf, mid and distal thigh. Size: 0.2-0.5 cm. Reflux: NA VARICOSITIES: Location: Multiple varices in the mid distal thigh and through the calf. Size: 0.3 cm. Reflux: NA 3. DEEP VENOUS ULTRASOUND OF THE LEFT LOWER EXTREMITY: Common Femoral Vein: Compressible, normal respiratory variation and augmented flow. Femoral Vein: Compressible, normal color flow and augmentation. Popliteal Vein: Compressible, normal augmentation. Deep Reflux: There is no evidence of reflux in the deep system in either the common femoral vein, superficial femoral or the popliteal vein. There is no evidence of a Ferris's cyst. 4. SUPERFICIAL ULTRASOUND WITH DOPPLER OF LEFT LOWER EXTREMITY: GREAT SAPHENOUS VEIN: Saphenofemoral Junction: 0.7 cm; Reflux: 0 ms Proximal Thigh: 0.3 cm; Reflux: 0 ms Mid Thigh: 0.2 cm; Reflux: 0 ms Distal Thigh: 0.2 cm; Reflux: 0 ms At Knee: 0.2 cm; Reflux: 0 ms Proximal Calf: 0.2 cm; Reflux: 0 ms Mid Calf: 0.3 cm; Reflux: 0 ms Distal Calf: 0.3 cm; Reflux: 0 ms DUPLICATED MEDIAL GREAT SAPHENOUS VEIN: Diameter: None imaged Reflux: NA DUPLICATED LATERAL GREAT SAPHENOUS VEIN: Diameter: None imaged. Reflux: NA SMALL SAPHENOUS VEIN: Saphenopopliteal Junction: 0.3 cm; Reflux: 0 ms Proximal: 0.5 cm; Reflux: 0 ms Distal: 0.4 cm; Reflux: 0 ms VEIN OF GIACOMINI: Size: NA Reflux: NA PERFORATORS: Location: Multiple varices in the small saphenous vein. Size: 0.2-0.5 cm. Reflux: NA VARICOSITIES: Location: Small saphenous vein in the knee and distal calf. Size: 0.3 cm. Reflux: 1728 ms in the knee small saphenous vein and 1480 ms in the mid calf. US/US venous duplex LE BI IMPRESSION: Right: Venous insufficiency, great saphenous vein, mid calf. Perforators and varices without reflux. Left: No venous insufficiency. Varices without reflux in the mid small saphenous vein and midcalf. Electronically signed by: German Liu MD 06/02/2024 03:23 PM EDT Dictated By: German Ziegler MD Signed By: <Electronically signed by German Hammer MDin OV> 06/02/24 1523 DD/ 1331 TD/TT: 06/01/24 1411 Lands Resource Manager: [facility] External Provider CV VASC ULAR PROCEDURES Edited Result - Final Performing Organization Address [facility]/ZIP Co de Phone Number [facility] [address] [place] [phone] * Hepatitis C Antibody with Reflex to HCV, RNA, Quantitative, Real-Time PCR (04/03/2024 11:51 AM EST) Hepatitis C Antibody Nonreactive Nonreactive [facility] Comment:Antibodies to HCV no t detected; does not exclude early acuteHCV infection. Blood Venous blood specimen / Unknown 04/03/2024 11:51 AM EST 04/03/2024 1:29 PM EST Valeri Villanueva [facility] LAB BLOOD ORDERABLES Final Res ult Performing Organization Address [facility]/ZIP Co de Phone Number [facility] [address] [place] [phone] * Hepatitis B surface antigen, EIA (04/03/2024 11:51 AM EST) Hepatitis B Surface Ag Negative Negative [facility] Blood Venous blood specimen / Unknown 04/03/2024 11:51 AM EST 04/03/2024 1:29 PM EST [employer] [facility] LAB BLOOD ORDERABLES Final Res ult Performing Organization Address City/[facility]/ZIP Co de Phone Number [facility] [address] [place] [phone] * Hepatitis B Core Antibody, Total (04/03/2024 11:51 AM EST) Hepatitis B Core Antibody Nonreactive Nonreactive [facility] Blood Venous blood specimen / Unknown 04/03/2024 11:51 AM EST 04/03/2024 1:29 PM EST [facility] LAB BLOOD ORDERABLES Final Res ult Performing Organization Address [facility] Co de Phone Number [facility] [address] [place] [phone] * HIV-1/2 Antigen and Antibodies, Fourth Generation, with Reflexes (04/03/2024 11:51 AM EST) HIV AB/AG Nonreactive Nonreactive [facility] Comment:HIV-1 p24 Ag and/or HIV-1/HIV-2 Ab not detected.A test result that is nonreactive does not exclude thepossibility of exposure to or infection with HIV-1 and/orHIV-2. Nonreactive results in this assay for individualswith prior exposure to HIV-1 and/or HIV-2 may be due toantigen and antibody levels that are below the limit ofdetection of this assay.The [employer] HIV Ag/Ab Combo assay result andsupplemental assay results should be interpreted inconjunction with the patient's clinical presentation,history and other laboratory results. If the results areinconsistent with clinical evidence, additional testing issuggested to confirm the result. Blood Venous blood specimen / Unknown 04/03/2024 11:51 AM EST 04/03/2024 1:29 PM EST [employer] [facility] LAB BLOOD ORDERABLES Final Res ult Performing Organization Address City/[facility]/ZIP Co de Phone Number [facility] [address] [place] [phone] * Hepatitis B Surface Antibody, Qualitative (04/03/2024 11:51 AM EST) ~Hepatitis B Surface Antibody REACTIVE Nonreactive [facility] Comment:REACTIVE: > 11.99 mI U/mL Blood Venous blood specimen / Unknown 04/03/2024 11:51 AM EST 04/03/2024 1:29 PM EST Valeri Okkieran [facility] LAB BLOOD ORDERABLES Final Res ult Performing Organization Address [facility] Co de Phone Number [facility] [address] [place] [phone] * Lipid Panel, Standard (04/03/2024 11:51 AM EST) Pathologist [facility] Triglycerides 57 <150 mg/dL [facility] Comment:Desirable Triglyceri de: less than 150 mg/dLBorderline High Triglyceride 150-199 mg/dLHigh Triglyceride: 200-499 mg/dLVery High Triglyceride: greater than or equal to 5OO mg/dL Cholesterol 158 <200 mg/dL [facility] Comment:Desirable Cholestero l: less than 200 mg/dLBorderline High Cholesterol: 200-239 mg/dLHigh Cholesterol: greater than 239 mg/dL LDL Cholesterol Calculated 98 <100 mg/dL [facility] Comment:Desirable LDL: less than 100 mg/dLNear Optimal/Above Optimal LDL: 110- 129 mg/dLBorderline High LDL: 130-159 mg/dLHigh LDL: 160-189 mg/dLVery High LDL: greater than or equal to 190 mg/dL HDL Cholesterol 49 >40 mg/dL [facility] Comment:Desirable HDL: great er than 40 mg/dL Note: This HDL assay may give artificially low results in patients with liver disease. Blood Venous blood specimen / Unknown 04/03/2024 11:51 AM EST 04/03/2024 1:29 PM EST [facility] LAB BLOOD ORDERABLES Final Res ult Performing Organization Address [facility]/ZIP Co de Phone Number [facility] [address] [place] [phone] * (ABNORMAL) Basic Metabolic Panel (04/03/2024 11:51 AM EST) Sodium 139 135 - 145 mmol/L [facility] Potassium 4.3 3.3 - 5.1 mmol/L [facility] Chloride 104 96 - 108 mmol/L [facility] Carbon Dioxide 30(H) 22 - 29 mmol/L [facility] Anion Gap 9(L) 12 - 20 [facility] Urea Nitrogen (BUN) 19(H) 9 - 16 mg/dL [facility] Creatinine, Serum 0.74 0.5 - 1.4 mg/dL [facility] Estimated Glomerular Filt Rate >60 [facility] Comment:Chronic Kidney Disea se: Estimated GFR < 60 mL/min/1.80w8Clpqxq Kidney Disease: Estimated GFR < 15 mL/min/1.73m2 Glucose 100 60 - 115 mg/dL [facility] Calcium 8.9 8.4 - 10.2 mg/dL [facility] Blood Venous blood specimen / Unknown 04/03/2024 11:51 AM EST 04/03/2024 1:29 PM EST [employer] [facility] LAB BLOOD ORDERABLES Final Res ult Performing Organization Address City/[facility]/ZIP Co de Phone Number [facility] [address] [place] [phone] * POCT HGB A1C (04/01/2024 3:06 PM EST) Hemoglobin A1C 5.8 4.0 - 6.0 % QC Media Lot # [id number] Lot# Expiration Date [id number] Blood 04/01/2024 3:06 PM EST Valeri Villanueva [facility] POINT OF CARE TEST ENTER/EDIT ORDERABLES Final Result * POCT Glucose (04/01/2024 3:05 PM EST) [facility] Glucose Blood, POC 96 60 - 200 mg/dL QC Media Lot # [id number] Lot# Expiration Date ,[id number] Blood Capillary blood specimen / Unknown 04/01/2024 3:05 PM EST Valeri Villanueva [facility] POINT OF CARE TEST ENTER/EDIT ORDERABLES Final Result from Last 3 [place] [id number] [facility] [address] [place] [phone] [place] [phone] [place] [phone] Care Teams Personal Financial Representative Relationship Specialty Start Date End Date Valeri Villanueva FNP [address] [place] [address] PCP - General Family Medicine 04/01/24
== END 2024-06-09 15:53 | disposition home or self-care (01) ==
LOC: HO.HVS 15:23
PROVIDERS: PCP Nurse Practitioner Family; Visit Provider Surgery Vascular Surgery
DX: I83.11 Varicose veins of right lower extremity with inflammation (principal)
CPT/HCPCS: 99214

== ENCOUNTER → 2024-06-09 15:22 | Outpatient (BNVA) | payer MEDICAID, SELFPAY | PROVIDERS: PCP Nurse Practitioner Family; Visit Provider Surgery Vascular Surgery | DX: I83.11 Varicose veins of right lower extremity with inflammation (principal) | CPT/HCPCS: 99212 ==

== ENCOUNTER 2024-07-06 14:36 | Outpatient (REF) | payer MEDICAID, SELFPAY ==
[2024-07-06 15:42] LABS: Blood Urea Nitrogen 18 mg/dL (9-16); Estimated Glomerular Filt Rate > 60
--- OUTSIDE RECORDS SUMMARY | 2024-07-06 17:27 | XMS_ITS | Clinical Summary ---
Author Organization [employer] Address [address] [facility] 7t [place] [address] Care Team Providers Care Cycle Director Name Role Phone Valeri Villanueva [facility] Primary Care Provider [phone] Allergies No known active allergies Medications * [...] with high salt Moisturize your skin Encounters Date Type Department Care Team Description 07/03/2024 3:30 PM EDT Office Visit [facility] [address] [place] [address] Valeri Villanueva FNP 07/03/2024 Travel 07/02/2024 Telephone [facility] [address] [place] [address] Hilary Harrison MA chartprep 06/23/2024 Telephone [facility] [address] [place] [address] Valeri Villanueva FNP June06/01/2024 Orders Only [facility] External Provider, [facility] 05/22/2024 Population Health Risk Score [facility] Department [address] [place] [phone] Provider, Population Health Generic from Last 3 Months Immunizations Name Administration Dates Next Due Influenza injectable quadrivalent preservative f ree 03/21/2019 Tdap 05/01/2023 Family History Medical History Relation Name Comments Diabetes Maternal Grandmother Relation Name Status Comments Maternal Grandmother Social History Tobacco Use Types Packs/Day Years Used Date Smoking Tobacco: Every Day Cigarettes Passive Smoke Exposure: Current Smokeless Tobacco: Current Tobacco Cessation:Ready to Q uit: Not Asked; Counseling Given: Not Answered Comments:Smokes 2 cigarettes per day Alcohol Use Standard Drinks/Week Comments Never 0 (1 standard drink = 0.6 oz pur e alcohol) Depression Answer Date Recorded Patient Health Questionnaire-9 Score 12 07/03/2024 Patient Health Questionnaire-9 Score 12 07/03/2024 Last PHQ-9: Questionnaire Data Not on file 0 07/03/2024 Housing Stability Answer Date Recorded What is [...] Answer Date Recorded Patient Health Questionnaire-2 Score 3 07/03/2024 Internet Access Answer Date Recorded Internet Access [...] Sign Reading Time Taken Comments Blood Pressure 125/78 07/03/2024 3:50 PM EDT Pulse 83 07/03/2024 3:50 PM EDT Temperature 36.5 ??C (97.7 ??F) 07/03/2024 3:50 PM ED T Respiratory Rate 22 07/03/2024 3:50 PM EDT Oxygen Saturation 95% 04/01/2024 3:00 PM EST Inhaled Oxygen Concentration - - Weight 85.5 kg (188 lb 8 oz) 07/03/2024 3:50 PM EDT Height 185.4 cm (6' 1 ) 07/03/2024 3:50 PM EDT Body Mass Index 24.87 07/03/2024 3:50 PM EDT Plan of Treatment Health Maintenance Due Date Last Done Comments Family Planning (PISQ) 05/31/2003 Hepatitis B Vaccines (1 of 3 - 19+ 3-dose series) 05/31/2007 COVID-19 Vaccine ( - 2023-2 5 season) 2023 Influenza Vaccine (#1) 2024 03/21/2019 Postp oned from 11/10/2023 (Patient Refused) SDOH Screening 03/20/2025 03/20/2024 Alcohol/Substance Use Screening 04/01/2025 04/01/2024 Diabetes: Hemoglobin A1C 04/01/2025 04/01/2024 Pneumococcal Vaccine: Pediatrics (0 to 5 Years) and At-Risk Patients (6 to 49) Years) (1 of 2 - PCV) 04/02/2025 Postponed from (Patient Refused) Depression Screening 07/03/2025 07/03/2024, 07/03/2024 Tobacco Screening 07/03/2025 07/03/2024 Lipid Panel 04/03/2029 04/03/2024 DTaP/Tdap/Td Vaccines (2 [...] Procedure Name Priority Date/Time Associated Diagnosis Comments [facility] LOWER EXTREMITY VENOUS DUPLEX BILATERAL Routine 06/01/2024 1:[address] [facility] US LOWER EXTREMITY VENOUS DUPLEX BILATERAL Routine 04/22/2024 1:31 PM EST HEPATITIS C AB W/REFL TO HCV RNA, [...] adult wellness visit from Last 3 Months or Most Recently Relevant to Health Maintenance Results * [facility] Lower Extremity Venous Duplex Bilateral (06/01/2024 1:31 PM EDT) Only the most recent of2 resultswithin the time period is included. 06/01/2024 1:31 PM EDT Narrative [facility] - 06/02/2024 3:28 PM EDT ? [facility] ?[address] ?[place] [address] ? Ultrasound Report ? Signed ? Patient: Isac,Nylson ?MR#: [id number] ?? [id number] ? : 1990 ?Acct:[id number] ? Age/Sex: 34 / M ?ADM Date: 03/24/25 ? Loc: HO.US ? Attending Dr: Jose R Akers MD ? Ordering Physician: Jose R Akers MD ?? Date of Service: 06/01/24 ?? Procedure(s): US venous duplex LE BI ?? Accession Number(s): [id number] ? cc: Jose R Akers MD; Valeri Villanuvea ? EXAMINATION: ?? US LOWER EXTREMITY VENOUS [...] ms in the mid ?? calf. ? US/ venous duplex LE BI ?? IMPRESSION: ?? [...] DD/ 1331 ? TD/TT: 06/01/24 1411 ? Facing Slitter: ? Procedure Note Ciara, Image - 06/02/[address] [address] Ultrasound Report Signed Patient: Annabelle ChauMR#: [id number] : 1990Acct:[id number] Age/Sex: 34 / MADM Date: 06/01/24 Loc: HO.US Attending Dr: Jose R Akers MD Ordering Physician: Jose R Akers MD Date of Service: 06/01/24 Procedure(s): US venous duplex LE BI Accession Number(s): [id number] cc: Jose R Akers MD; Valeri VillanuevaP EXAMINATION: US LOWER EXTREMITY VENOUS (REFLUX EXAM), [...] 06/02/24 1523 DD/ 1331 TD/TT: 06/01/24 1411 Facing Slitter: us [facility] External Provider CV VASC ULAR PROCEDURES Edited Result - Final [facility] [address] [place], [place] [phone] * Hepatitis C Antibody with Reflex to HCV, RNA, Quantitative, Real-Time PCR (04/03/2024 11:51 AM EST) Hepatitis C Antibody Nonreactive Nonreactive [facility] Comment:Antibodies to HCV no t detected; does not exclude early acuteHCV infection. Blood Venous blood specimen / Unknown 04/03/2024 11:51 AM EST 04/03/2024 1:29 PM EST [facility] LAB BLOOD ORDERABLES Final Res ult Performing Organization Address [facility] Co de Phone Number [facility] [address] [place] [address] [phone] * HIV-1/2 Antigen and Antibodies, Fourth Generation, with Reflexes (04/03/2024 11:51 AM EST) HIV AB/AG Nonreactive Nonreactive [facility] Comment:HIV-1 p24 Ag and/or HIV-1/HIV-2 Ab not detected.A test result that is nonreactive does not exclude thepossibility of exposure to or infection with HIV-1 and/orHIV-2. Nonreactive results in this assay for individualswith prior exposure to HIV-1 and/or HIV-2 may be due toantigen and antibody levels that are below the limit ofdetection of this assay.The [employer] HIV Ag/Ab Combo assay result andsupplemental assay results should be interpreted inconjunction with the patient's clinical presentation,history and other laboratory results. If the results areinconsistent with clinical evidence, additional testing issuggested to confirm the result. Blood Venous blood specimen / Unknown 04/03/2024 11:51 AM EST 04/03/2024 1:29 PM EST [facility] LAB BLOOD ORDERABLES Final Res ult Performing Organization Address City/[facility]/ZIP Co de Phone Number [facility] [address] [place] [address] [phone] * Lipid Panel, Standard (04/03/2024 11:51 AM EST) Triglycerides 57 <150 mg/dL [facility] Comment:Desirable Triglyceri de: less than 150 mg/dLBorderline High Triglyceride 150-199 mg/dLHigh Triglyceride: 200-499 mg/dLVery High Triglyceride: greater than or equal to 5OO mg/dL Cholesterol 158 <200 mg/dL [facility] Comment:Desirable Cholestero l: less than 200 mg/dLBorderline High Cholesterol: 200-239 mg/dLHigh Cholesterol: greater than 239 mg/dL LDL Cholesterol Calculated 98 <100 mg/dL [facility] Comment:Desirable LDL: less than 100 mg/dLNear Optimal/Above Optimal LDL: 110- 129 mg/dLBorderline High LDL: 130-159 mg/dLHigh LDL: 160-189 mg/dLVery High LDL: greater than or equal to 190 mg/dL HDL Cholesterol 49 >40 mg/dL [facility] Comment:Desirable HDL: great er than 40 mg/dL Note: This HDL assay may give artificially low results in patients with liver disease. Blood Venous blood specimen / Unknown 04/03/2024 11:51 AM EST 04/03/2024 1:29 PM EST [email or web address] [facility] LAB BLOOD ORDERABLES Final Res ult Performing Organization Address City/State/[facility] Co de Phone Number [facility] [address] [place] [phone] * POCT HGB A1C (04/01/2024 3:06 PM EST) Hemoglobin A1C 5.8 4.0 - 6.0 % QC Media Lot # [id number] Lot# Expiration Date [id number] Blood 04/01/2024 3:06 PM EST [employer] [facility] POINT OF CARE TEST ENTER/EDIT ORDERABLES Final Result from Last 3 Months or Most Recently Relevant to Health Maintenance Insurance [facility] C[facility] [place] [address] [place] [id number] Care Teams Cycle Director Relationship Specialty Start Date End Date Valeri Villanueva FNP [address] [place] [phone] PCP - General Family Medicine 04/01/24
--- OUTSIDE RECORDS SUMMARY | 2024-07-06 17:27 | XMS_ITS | Encounter Summary ---
Author Organization [employer] [facility] Address [address] [facility] 7t [place] [address] Care Team Providers Care Network Designer Name Role Phone Valeri Villanueva [facility] Primary Care Provider [phone] Reason for Visit * Reason Onset Date Comments chartprep 07/02/2024 Encounter Details Date Type Department Care Team (Late st Contact Info) Description 07/02/2024 Telephone [facility] [address] [place] [address] Hilary Harrison MA chartprep Social History Tobacco Use Types Packs/Day Years [...] encounter Miscellaneous Notes * Telephone Encounter - Hilary Harrison MA - 07/02/2024 10:27 AM EDT Chart Prep Labs: done except chlamydia/gonorrhea RNA Images: not applicable Referrals: complete Vaccines due: yes covid,hep B Screenings: not applicable Overdue care gaps: Disability screen documented in this encounter Plan of Treatment Not on file documented as of this encounter Visit Diagnoses Not on filedocumented in this encounter Additional Health Concerns Assessment Noted Time PHQ-9 Depression Total Score: 4 04/01/19 3:02 PM EST documented as of this encounter Care Teams Network Designer Relationship Specialty Start Date End Date Valeri Villanueva FNP [address] [place] [phone] PCP - General Family Medicine 04/01/24 documented as of this encounter
--- OUTSIDE RECORDS SUMMARY | 2024-07-06 17:27 | XMS_ITS | Encounter Summary ---
Author Organization [employer] [facility] Address [address] [facility] 7t [place] [address] Care Team Providers Care Rewinder Operator Name Role Phone Colleen Villanuevaupe [facility] Primary Care Provider [phone] Encounter Details Date Type Department Care Team ([facility] st Contact Info) Description 07/03/2024 3:30 PM EDT Office Visit [facility] [address] [place] [address] Valeri Villanueva FNP [address] [place] [address] Social History Tobacco Use Types Packs/Day Years [...] 22 07/03/2024 3:50 PM EDT Oxygen Saturation - - Inhaled Oxygen Concentration - - Weight 85.5 kg (188 lb 8 oz) 07/03/2024 3:50 PM EDT Height 185.4 cm (6' 1 ) 07/03/2024 3:50 PM EDT Body Mass Index 24.87 07/03/2024 3:50 PM EDT documented in this encounter Plan of Treatment Not on file documented as of this encounter Visit Diagnoses Not on filedocumented in this encounter Additional Health Concerns Assessment Noted Time PHQ-9 Depression Total Score: 12 025 4:30 PM EDT documented as of this encounter Care Teams Rewinder Operator Relationship Specialty Start Date End Date Valeri Villanueva FNP [address] [place] [address] PCP - General Family Medicine 04/01/24 documented as of this encounter
--- OUTSIDE RECORDS SUMMARY | 2024-07-06 17:27 | XMS_ITS | Encounter Summary ---
Author Organization [employer] Address [address] [facility] [address] [place] [address] Care Team Providers Care Zigzag Appliquer Name Role Phone Valeri Villanueva [facility] Primary Care Provider [phone] Encounter Details Date Type Department Care Team (Latest Contact Info) Description 07/03/2024 Travel Social History Tobacco Use Types Packs/Day Years Used Date Smoking Tobacco: Every Day Cigarettes Passive Smoke Exposure: Current Smokeless Tobacco: Current Comments:Smokes 2 cigarettes per [...] Noted Time PHQ-9 Depression Total Score: 12 07/03/ 025 4:30 PM EDT documented as of this encounter Care Teams Zigzag Appliquer Relationship Specialty Start Date End Date Valeri Villanueva FNP [address] [place] [phone] PCP - General Family Medicine 04/01/24 documented as of this encounter
== END 2024-07-06 14:37 | disposition home or self-care (01) ==
LOC: HO.LAB 14:36
PROVIDERS: Visit Provider Surgery Vascular Surgery
DX: I83.11 Varicose veins of right lower extremity with inflammation (principal)
CPT/HCPCS: 36415; 82565; 84520

== ENCOUNTER 2024-08-04 11:08 | Outpatient (REF) | payer MEDICAID, SELFPAY ==
--- NOTE | ~2024-08-04 | CT_ITS ---
CLINICAL HISTORY: I83.11 - Varicose veins of right lower extremity with inflammation --- Additional N otes or Special Instructions: Please do CT venogram of abdomen and pelvis with delayed imaging for ve nous CT angiography abdomen and pelvis with contrast. 3-D post processing. Comparison: None Findings: Aorta, mesenteric/renal arteries, and iliofemoral systems are within normal limits. The lung bases are clear. The gallbladder and solid organs are within normal limits. No renal stones. No bowel obstruction, pneumoperitoneum, or pneumatosis. Pelvic contents unremarkable. The appendix is not identified. There is no evidence of appendicitis. No acute fracture. IMPRESSION: No acute findings. This document has been electronically signed by: Wally Sanders MD on 08/06/2024 13:05:42
--- OUTSIDE RECORDS SUMMARY | 2024-08-04 11:57 | XMS_ITS | Clinical Summary ---
Author Organization [employer] Address [address] [facility] 7t [place] [address] Care Team Providers Care Lokie Engineer Name Role Phone Valeri Villanueva [facility] Primary Care Provider [phone] Allergies No known active allergies Medications * This document contains information received from the source organization and may not represent a complete record from that organization. 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 lammation 07/18/2024 Encounter for adult wellness visit 04/02/2024 Dietary [...] EDT Office Visit [facility] [address] [place] [phone] Valeri Villanueva FNP Anxiety and depression (Primary Dx); Polysubstance abuse (CMS/HCC); Varicose veins of right lower extremity with inflammation 07/03/2024 Travel 07/02/[address] [address] Hilary Harrison MA chartprep 06/23/2024 Telephone [facility] [address] [place] [address] Valeri Villanueva FNP June Recall 06/01/2024 Orders Only [facility] External Provider, [facility] 05/22/2024 Population Health Risk Score [facility] ([facility] Department [address] [phone] Provider, Population Health Generic from Last 3 Months Immunizations Immunization Administration Dates Next Due Influenza injectable quadrivalent [...] is your housing situation today? I have facundorossana leigh 03/20/[address] you [...] (Patient Refused) Depression Screening 07/03/2025 07/03/2024, 07/03/2024 Disability Screening 07/03/2025 07/03/2024 Tobacco Screening 07/03/2025 07/03/2024 Lipid Panel [...] patient's age to complete this topic Meningococcal B Vaccine Aged Out No l onger eligible based on patient's age to complete [...] Procedure Name Priority Date/Time Associated Diagnosis Comments [facility] LOWER EXTREMITY VENOUS DUPLEX BILATERAL Routine 06/01/2024 1:31 PM EDT HEPATITIS C AB W/REFL TO HCV RNA, [...] Recently Relevant to Health Maintenance Results * [facility] Lower Extremity Venous Duplex Bilateral (06/01/2024 1:31 PM EDT) 06/01/2024 1:31 PM EDT Narrative [facility] IMAGING - 06/02/2024 3:28 PM EDT ? [facility] ?[address] ?[place] [address] ? Ultrasound Report ? Signed ? Patient: Benoit Ely,Nylson ?MR#: [id number] ?? [id number] ? : 1990 ?Acct:[id number] ? Age/Sex: 34 / M ?ADM Date: 03/24/25 ? Loc: HO.US ? Attending Dr: Jose R Akers MD ? Ordering Physician: Jose R Akers MD ?? Date of Service: 06/01/24 ?? Procedure(s): US venous duplex LE BI ?? Accession Number(s): [id number] ? cc: Jose R Akers MD; Valeri VillanuevaP ? EXAMINATION: ?? US LOWER EXTREMITY VENOUS [...] DD/ 1331 ? TD/TT: 06/01/24 1411 ? Grounds Caretaker: ? Procedure Note Donyesicater, Image - 06/02/2024 [place] [address] Ultrasound Report Signed Patient: Annabelle ChauMR#: [id number] : 1990Acct:[id number] Age/Sex: 34 / MADM Date: 06/01/24 Loc: HO.US Attending Dr: Jose R Akers MD Ordering Physician: Jose R Akers MD Date of Service: 06/01/24 Procedure(s): US venous duplex LE BI Accession Number(s): [id number] cc: Jose R Akers MD; Valeri Villanueva EXAMINATION: US LOWER EXTREMITY VENOUS (REFLUX EXAM), [...] 06/02/24 1523 DD/ 1331 TD/TT: 06/01/24 1411 Grounds Caretaker: us [facility] External Provider CV VASC ULAR PROCEDURES Edited Result - Final [facility] [address] [place] [phone] * Hepatitis C Antibody with Reflex to HCV, RNA, Quantitative, Real-Time PCR (04/03/2024 11:51 AM EST) Hepatitis C Antibody Nonreactive Nonreactive [facility] Comment:Antibodies to HCV no t detected; does not exclude early acuteHCV infection. Blood Venous blood specimen / Unknown 04/03/2024 11:51 AM EST 04/03/2024 1:[address] [facility] LAB BLOOD ORDERABLES Final Res ult Performing Organization Address City/[facility]/ZIP Co de Phone Number [facility] [address] [place] [phone] * HIV-1/2 Antigen and Antibodies, Fourth Generation, with Reflexes (04/03/2024 11:51 AM EST) [facility] HIV AB/AG Nonreactive Nonreactive [facility] Comment:HIV-1 p24 Ag and/or HIV-1/HIV-2 Ab not detected.A test result that is nonreactive does not exclude thepossibility of exposure to or infection with HIV-1 and/orHIV-2. Nonreactive results in this assay for individualswith prior exposure to HIV-1 and/or HIV-2 may be due toantigen and antibody levels that are below the limit ofdetection of this assay.The [employer] HIV Ag/Ab Combo assay result andsupplemental assay results should be interpreted inconjunction with the patient's clinical presentation,history and other laboratory results. If the results areinconsistent with clinical evidence, additional testing issuggested to confirm the result. Blood Venous blood specimen / Unknown 04/03/2024 11:51 AM EST 04/03/2024 1:[address] [facility] LAB BLOOD ORDERABLES Final Res ult Performing Organization Address City/[facility]/ZIP Co de Phone Number [facility] [address] [place] [address] [phone] * Lipid Panel, Standard (04/03/2024 11:51 AM EST) Pathologist [facility] Triglycerides 57 <150 mg/dL [facility] Comment:Desirable Triglyceri de: less than 150 mg/dLBorderline High Triglyceride 150-199 mg/dLHigh Triglyceride: 200-499 mg/dLVery High Triglyceride: greater than or equal to 5OO mg/dL Cholesterol 158 <200 mg/dL [facility] Comment:Desirable Cholestero l: less than 200 mg/dLBorderline High Cholesterol: 200-239 mg/dLHigh Cholesterol: greater than 239 mg/dL LDL Cholesterol Calculated 98 <100 mg/dL [facility] Comment:Desirable LDL: less than 100 mg/dLNear Optimal/Above Optimal LDL: 110- 129 mg/dLBorderline High LDL: 130-159 mg/dLHigh LDL: 160-189 mg/dLVery High LDL: greater than or equal to 190 mg/dL HDL Cholesterol 49 >40 mg/dL [facility] Comment:Desirable HDL: great er than 40 mg/dL Note: This HDL assay may give artificially low results in patients with liver disease. Blood Venous blood specimen / Unknown 04/03/2024 11:51 AM EST 04/03/2024 1:29 PM EST Valeri Villanueva [employer] LAB BLOOD ORDERABLES Final Res ult [facility] [address] [place] [phone] * POCT HGB A1C (04/01/2024 3:06 PM EST) Hemoglobin A1C 5.8 4.0 - 6.0 % QC Media Lot # [id number] Lot# Expiration Date [id number] Blood 04/01/2024 3:06 PM EST Valeri [employer] POINT OF CARE TEST ENTER/EDIT ORDERABLES Final Result from Last 3 Months or Most Recently Relevant to Health Maintenance Insurance [facility] [address] [place] [id number] [place] [id number] Care Teams Lokie Engineer Relationship Specialty Start Date End Date Valeri Villanueav FNP [address] [place] [address] [place] [address] PCP - General Family Medicine 04/01/24
[2024-08-04] MEDS: iohexoL 350 MG/ML 100 ML INFUS..BTL 85 ML IV (11:59)
== END 2024-08-04 11:09 | disposition home or self-care (01) ==
LOC: HO.CT 11:08
PROVIDERS: PCP Nurse Practitioner Family; Visit Provider Surgery Vascular Surgery
DX: I83.11 Varicose veins of right lower extremity with inflammation (principal)
CPT/HCPCS: 74174; Q9967

== ENCOUNTER → 2024-08-04 11:10 | Outpatient (BNV) | payer MEDICAID, SELFPAY | PROVIDERS: PCP Nurse Practitioner Family; Visit Provider Radiology Diagnostic Radiology | DX: I83.11 Varicose veins of right lower extremity with inflammation (principal) | CPT/HCPCS: 74174 ==

== ENCOUNTER 2024-08-11 14:05 | Outpatient (AMB) | payer MEDICAID, SELFPAY ==
--- NOTE | 2024-08-11 14:05 | MHC.OFFVIS ---
Vital Signs 08/11/24 14:07 Height 6 ft 1 in Weight 190 lb BMI 25.1 Intake Visit Reasons: follow up s/p CTA Abd/Pelvis 08/04/24 Intake Note: follow up CTA ABd/pelvis 08/04/24, for bilateral LE discoloration and swelling. Pt states when on his feet he does get mmore swelling. 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 He initially presented to our office with several years of bilateral lower extremity swelling and discoloration, worsening. 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 He states the swelling gets worse throughout the course of the day, worse at night. He has been wearing compression socks with some relief. He recently had a US, which was negative for insufficiency. He denies any new concerns today. [facility] Medical History No known health problems Social History Cigarettes Per Day: 3 Review of Systems Const Reports as per HPI and Denies weakness ENT Reports Normal hearing present and Denies dizziness Card Reports as per HPI, Denies chest pain, Denies chest pain at rest, Denies chest pain with activity, Denies dyspnea and Denies dyspnea on exertion Resp Reports as per HPI, Denies cough, Denies dyspnea and Denies dyspnea on exertion GI Reports as per HPI, Denies abdominal pain, Denies nausea and Denies vomiting Musc Denies numbness Skin/Breast Reports as per HPI, Denies erythema and Denies wounds Neuro Reports Normal hearing present, Denies dizziness, Denies numbness, Denies Sensory deficit (Neuro) and Denies weakness Psych Reports no additional complaints Endo Reports no additional complaints Physical Exam Vital Signs: BMI result Body Mass Index 25.1 Const General: healthy appearing and no acute distress Orientation/consciousness: patient oriented x3 HEENT Head: Yes normal to inspection Ears: hearing grossly normal bilaterally Mouth: Normal oral and palatal mucosa present Resp Effort & Inspection: normal respiratory effort and able to speak in complete sentences Auscultation: clear to auscultation bilaterally Cardio Jugular venous distension: no JVD Rate: regular rate Rhythm: regular rhythm Heart sounds: S1 normal heart sound present and S2 normal heart sound present Bruits: no abdominal aortic bruits, no carotid bruits, no femoral bruits and no renal bruits Peripheral pulses: Peripheral pulses 2+ throughout GI Inspection: Yes normal to inspection Palpation (GI): No Abdominal aortic bruit present Skin General skin exam: no rashes or lesions noted Wounds: no wounds Hair: normal Neuro General: patient oriented x3 Cranial nerves: Yes Normal hearing present Cognition (Neuro): normal cognition Gait exam (Neuro): Normal gait present Motor exam (neuro): 5/5 motor strength present throughout Sensory Exam: No Sensory deficit (Neuro) Extrem Other: Bilateral lower extremities: +2 pitting edema noted. Deep erythematous discoloration noted from below the pretibial area to the ankles. Hyperkeratosis noted. Right in cm: Thigh 48.5 Knee 43.5 Calf 43.5 Ankle 29.5 Left in cm: Thigh 48.0 Knee 43 Calf 43 Ankle 28.5 General: Yes normal to inspection, Yes full ROM, Yes capillary refill normal and Yes normal gait Results Reviewed Results Reviewed: CTA Abd/Pelvis 08/04/24: Aorta, mesenteric/renal arteries, and iliofemoral systems are within normal limits. No acute findings. Assessment & Plan Assessment & Plan (1) Lymphedema: Code(s): I89.0 - Lymphedema, not elsewhere classified Category: Medical Plan: Annabelle is presenting today on a follow up to CTA of the abd/pelvis due to ongoing bilateral lower extremity swelling, discomfort, and discoloration. His US, performed on 06/01/24 was negative and a CTA was ordered, which revealed no acute findings with the aorta, mesenteric/renal arteries, and iliofemoral systems within normal limits. Due to the ongoing swelling and discoloration without any peripheral vascular disease noted, likely he has lymphedema. In short the patient has late onset lymphedema. The patient has been on conservative treatment for at least 3 months with minimal relief, starting in April 2024. Patient has tried 30 mm of mercury compression garments, elevation, exercise healthy diet, and doing manual says self MLD to the best of their ability for over 4 weeks but with no significant relief. He has been compliant with the program but has provided minimal relief. In addition, on physical exam, we are noticing hyperpigmentation, hyperkeratosis, and hyperplasia. It appears that he has stage 2 lymphedema. Patient has completed multiple forms of conservative therapy yet significant symptoms remain. Patient requires the use of a pneumatic compression device which we will assist in trying to have the patient obtain them. A pneumatic compression device will help reduce swelling and other lymphedema comorbidities. Thank you for allowing us to assist in this patient's care. Coding Level of Care Code Est Pt Level 4 (95825) Diagnoses Lymphedema I89.0 Comment review of CTA
[2024-08-11 14:07] VITALS: BMI 25.1
--- OUTSIDE RECORDS SUMMARY | 2024-08-11 15:54 | XMS_ITS | Encounter Summary ---
Author Organization [employer] Address [address] [place] [address] Care Team Providers Care Human Resources Trainee Name Role Phone Valeri Villanueva [employer] Primary Care Provider [phone] Encounter Details Date Type Department Care Team (Late st Contact Info) Description 08/04/2024 Orders Only [facility] External Provider, [facility] Social History Tobacco Use Types Packs/Day Years [...] on file documented as of this encounter Procedures Procedure Name Priority Date/Time Associated Diagnosis Comments CTA ABDOMEN PELVIS W AND WO CONTRAST Routine 08/06/2024 1:05 PM EDT documented in this encounter Results * CTA Abdomen Pelvis w/ and w/o Contrast (08/06/2024 1:05 PM EDT) Anatomical Region Laterality Modality Body, Pelvis, Abdomen Computed T omography 08/06/2024 1:05 PM EDT Narrative 08/06/2024 1:07 PM EDT ? [facility] ?[address] ?[place] [address] ? CT Scan Report ? Signed ? Patient: Benoit ElyAnnabelle ?MR#: [id number] ?? [id number] ? : 1990 ?Acct:[id number] ? Age/Sex: 34 / M ?ADM Date: 08/04/24 ? Loc: HO.CT ? Attending Dr: Jose R Akers MD ? Ordering Physician: Jose R Akesr MD ?? Date of Service: 08/04/24 ?? Procedure(s): CT angio abdomen pelvis ?? Accession Number(s): [id number] ? cc: Jose R Akers MD; Valeri Villanueva ? Report Number: ?? [id number]: Total DLP = ??501.00 mGy-cm ? CLINICAL HISTORY: I83.11 - Varicose veins of right lower extremity with inflammation --- Additional Notes or Special Instructions: Please do CT venogram of abdomen and pelvis with delayed imaging for venous ? CT angiography abdomen and pelvis with contrast. 3-D post processing. ? Comparison: None ? Findings: ?? Aorta, mesenteric/renal arteries, and iliofemoral systems are within ?? normal limits. ? The lung bases are clear. ? The gallbladder and solid organs are within normal limits. No renal ?? stones. ?? No bowel obstruction, pneumoperitoneum, or pneumatosis. ? Pelvic contents unremarkable. The appendix is not identified. There is no ?? evidence of appendicitis. ?? No acute fracture. ? IMPRESSION: ?? No acute findings. ? This document has been electronically signed by: Wally Sanders MD on ?? 08/06/2024 13:05:42 ? Dictated By: ?Wally Sanders MD ? Signed By: ?<Electronically signed by Wally Sanders MD in [place]> ? 08/06/24 1306 ? DD/ 1305 ? TD/TT: 08/06/24 1305 ? Inorganic Chemist: ? Procedure Note Jackannetteeliotgrace, Image - 08/06/[address] [place] [id number] [address] Scan Report Signed Patient: Annabelle ChauMR#: [id number] : 1990Acct:[id number] Age/Sex: 34 / MADM Date: 08/04/24 Loc: HO.CT Attending Dr: Jose R Akers MD Ordering Physician: Jose R Akers MD Date of Service: 08/04/24 Procedure(s): CT angio abdomen pelvis Accession Number(s): [id number] cc: Jose R Akers MD; Valeri Villanueva [facility] Report Number: [id number]: Total DLP = 501.00 mGy-cm CLINICAL HISTORY: I83.11 - Varicose veins of right lower extremity withinflammation --- Additional Notes or Special Instructions: Please do CT venogram of abdomen and pelviswith delayed imaging for venous CT angiography abdomen and pelvis with contrast. 3-D post processing. Comparison: None Findings: Aorta, mesenteric/renal arteries, and iliofemoral systems are within normal limits. The lung bases are clear. The gallbladder and solid organs are within normal limits. No renal stones. No bowel obstruction, pneumoperitoneum, or pneumatosis. Pelvic contents unremarkable. The appendix is not identified. There is no evidence of appendicitis. No acute fracture. IMPRESSION: No acute findings. This document has been electronically signed by: Wally Sanders MD on 08/06/2024 13:05:42 Dictated By: Wally Sanders MD Signed By: <Electronically signed by Wally Sanders MD in OV> 08/06/24 1306 DD/ 1305 TD/TT: 08/06/24 1305 Inorganic Chemist: [facility] External Provider IMG CT PROCEDURES Final Result documented in this encounter Visit Diagnoses Not on filedocumented in this encounter Additional Health Concerns Assessment Noted Time PHQ-9 Depression Total Score: 12 07/03/ 025 4:30 PM EDT documented as of this encounter Care Teams Human Resources Trainee Relationship Specialty Start Date End Date Valeri Villanueva FNP [address] [place] [id number] PCP - General Family Medicine 04/01/24 documented as of this encounter
== END 2024-08-11 14:24 | disposition home or self-care (01) ==
LOC: HO.HVS 14:06
PROVIDERS: PCP Nurse Practitioner Family; Visit Provider Physician Assistant Surgical
DX: I89.0 Lymphedema, not elsewhere classified (principal)
CPT/HCPCS: 99214

== ENCOUNTER → 2024-08-11 14:05 | Outpatient (BNVA) | payer MEDICAID, SELFPAY | PROVIDERS: PCP Nurse Practitioner Family; Visit Provider Physician Assistant Surgical | DX: I89.0 Lymphedema, not elsewhere classified (principal) | CPT/HCPCS: 99212 ==